=== PATIENT | male | born 1940 | race Caucasian/White ===

== ENCOUNTER 2018-06-22 01:43 | Emergency (ER) | payer MEDICARE, OTHER ==
[~2018-06-22] VITALS: Ht 167.6 cm; Wt 83.9 kg
--- OUTSIDE RECORDS SUMMARY | 2018-06-22 01:47 | XMS REPORT | Continuity of Care Document ---
Author Author [facility] [place] [place] Organization 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 [place] [place] Aug 21, 2014 Allergies, Adverse Reactions, Alerts Type Substance Reaction Status Drug allergy PENICILLIN Active Problems Problem Effective Dates Problem Status BRONCHITIS, ALLERGIC July 16, 2013 Active NEOPLASM, MALIGNANT, RECTUM July 07, 2014 Active COLON POLYPS July 08, 2014 Active RECTAL POLYPS Aug 24, 2014 Active Procedures Date Description Comments July 16, 2013 smoking status never smoker July 07, 2014 smoking status Never smoker Aug 21, 2014 smoking status Never smoker Medications Medication Instructions Start Date Status AMLODIPINE BESYLATE 5 MG TABS 1 by mouth daily July 16, 2013 Active ZITHROMAX TAB 250MG 2 tablets today, then 1 tablet daily X 4 days July 16, 2013 Inactive BROMFED DM 30-2-10 MG/5ML SYRP Take 2 teaspoon 4 times a day for coughing. July 16, 2013 Inactive ASPIRIN LOW DOSE 81 MG TABS July 07, 2014 Active Vital Signs Date Description Test Result July 16, 2013 weight E&M - 3141-9 WEIGHT 179 lb July 16, 2013 height E&M - 8302-2 HEIGHT 67 in July 16, 2013 temperature E&M TEMPERATURE 96.4 deg f July 16, 2013 pulse rate E&M - 8867-4 PULSE RATE 65 /min July 16, 2013 blood pressure, systolic - 8480-6 BP SYSTOLIC 139 mm Hg July 16, 2013 blood pressure, diastolic - 8462-4 BP DIASTOLIC 66 mm Hg July 07, 2014 height E&M - 8302-2 HEIGHT 67 in July 07, 2014 weight E&M - 3141-9 WEIGHT 186 lb July 07, 2014 temperature E&M TEMPERATURE 98.7 deg f July 07, 2014 pulse rate E&M - 8867-4 PULSE RATE 61 /min July 07, 2014 blood pressure, systolic - 8480-6 BP SYSTOLIC 147 mm Hg July 07, 2014 blood pressure, diastolic - 8462-4 BP DIASTOLIC 73 mm Hg Aug 21, 2014 height E&M - 8302-2 HEIGHT 67 in Aug 21, 2014 weight E&M - 3141-9 WEIGHT 184 lb Aug 21, 2014 temperature E&M TEMPERATURE 97.7 deg f Aug 21, 2014 pulse rate E&M - 8867-4 PULSE RATE 68 /min Aug 21, 2014 blood pressure, systolic - 8480-6 BP SYSTOLIC 142 mm Hg Aug 21, 2014 blood pressure, diastolic - 8462-4 BP DIASTOLIC 70 mm Hg
--- OUTSIDE RECORDS SUMMARY | 2018-06-22 01:47 | XMS REPORT | Continuity of Care Document ---
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 Name Role Phone MD Pretty, Alphonso MAGUIRE Unavailable Insurance Providers Payer name Policy type / Coverage type Policy ID Covered libertarian ID Policy [employer] [employer] - OPEN ACCESS PLUS (POS) Encounters Encounter Performer Location Date Office Visit Alphonso Olsen MD [facility] Colorectal Surgery July 07, 2014 Allergies, Adverse Reactions, Alerts Type Substance Reaction Status Drug allergy PENICILLIN Active Problems Problem Effective Dates Problem Status BRONCHITIS, ALLERGIC July 16, 2013 Active NEOPLASM, MALIGNANT, RECTUM July 07, 2014 Active COLON POLYPS July 08, 2014 Active Procedures Date Description Comments July 16, 2013 smoking status never smoker July 07, 2014 smoking status Never smoker Medications Medication [...]
--- OUTSIDE RECORDS SUMMARY | 2018-06-22 01:47 | XMS REPORT | Continuity of Care Document ---
Author Author [facility] Address Unknown Phone Unavailable Problems Problem Status Onset Date Classification Date Reported Comments Source RECTAL POLYPS Active 08/24/2014 Condition 08/21/2014 [facility] COLON POLYPS Active 07/08/2014 Condition 08/21/2014 Medical Group NEOPLASM, MALIGNANT, RECTUM Active 07/07/2014 Condition 08/21/2014 Medical Group BRONCHITIS, ALLERGIC Active 07/16/2013 Condition 08/21/2014 [facility] Group Medications Medication Details Route Status Patient Instructions Ordering Provider Order Date Source ASPIRIN LOW DOSE 81 MG TABS Active 07/07/2014 [facility] AMLODIPINE BESYLATE 5 MG TABS 1 by mouth daily Active 07/16/2013 [facility] ZITHROMAX TAB 250MG 2 tablets today, then 1 tablet daily X 4 days No Longer Active 07/16/2013 Medical Group BROMFED DM 30-2-10 MG/5ML SYRP Take 2 teaspoon 4 times a day for coughing. No Longer Active 07/16/2013 [facility] AMLODIPINE BESYLATE 5 MG TABS 1 by mouth daily Active 07/16/2013 [facility] Allergies, Adverse Reactions, Alerts Substance Category Reaction Severity Reaction type Status Date Reported Comments Source PENICILLIN Drug allergy PENICILLIN 07/07/2014 [facility] Immunizations Immunization Date Given Site Status Last Updated Comments Source Results Order Name Results Value Reference Range Date Interpretation Comments Source Vital Signs Vital Sign Value Date Comments Source Height 67 08/21/2014 [facility] Weight 184 08/21/2014 [facility] Temperature Oral (F) 97.7 F 08/21/2014 [facility] Heart Rate 68 08/21/2014 [facility] Systolic (mm Hg) 142 08/21/2014 [facility] Diastolic (mm Hg) 70 08/21/2014 [facility] Height 67 07/07/2014 [facility] Weight 186 07/07/2014 [facility] Temperature Oral (F) 98.7 F 07/07/2014 [facility] Heart Rate 61 07/07/2014 [facility] Systolic (mm Hg) 147 07/07/2014 [facility] Diastolic (mm Hg) 73 07/07/2014 [facility] Weight 179 07/16/2013 [facility] Height 67 07/16/2013 [facility] Temperature Oral (F) 96.4 F 07/16/2013 Medical [facility] Heart Rate 65 07/16/2013 [facility] Systolic (mm Hg) 139 07/16/2013 [facility] Diastolic (mm Hg) 66 07/16/2013 [facility] Encounters Location Location Details Encounter Type Encounter Number Reason For Visit Attending Provider ADM Date DC Date Status Source [facility] Office Visit [id number] Alphonso Olsen MD 07/07/2014 07/07/2014 [facility] Surgery [place] Office Visit [id number] Alphonso Olsen MD 08/21/2014 08/21/2014 [facility] Procedures Procedure Code Date Perfomer Comments Source
--- OUTSIDE RECORDS SUMMARY | 2018-06-22 01:47 | XMS REPORT | Clinical Summary ---
Author Author [facility] [employer] [facility] Address Unknown Phone Unavailable Care Team Providers [facility] Appraiser Name Role Phone Henry Salcedo DO PCP Allergies Comments Active Allergy Reactions Severity Noted Date Hydralazine Other (See 05/30/2018 Comments) Penicillins Rash Low 07/25/2017 Medications End Date Status Medication Sig Dispensed Refills Start Date Active aspirin (ECOTRIN) 81 MG Take 81 mg by 0 enteric coated tablet mouth daily. Active tamsulosin (FLOMAX) 0.4 Take 0.4 mg 0 mg capsule by mouth daily. 07/02/2018 Active losartan (COZAAR) 100 MG Take 1 tablet 30 tablet 0 tablet (100 mg 9 total) by mouth daily for 30 days. 05/23/2018 Discontinued amLODIPine (NORVASC) 10 Take 10 mg by 0 mg tablet mouth daily. 06/01/2018 Discontinued losartan (COZAAR) 25 MG Take 25 mg by 0 tablet mouth daily. 07/31/2017 Discontinued clindamycin (CLEOCIN) 150 Take 2 56 capsule 0 MG capsule capsules (300 8 mg total) by mouth every 6 (six) hours for 7 days. 07/31/2017 Discontinued acetaminophen-codeine Take 1 tablet 15 tablet 0 (TYLENOL WITH CODEINE #3) by mouth 8 300-30 mg per tablet every 6 (six) hours as needed for moderate pain for up to 3 days. 06/01/2018 Discontinued NON FORMULARY 0 08/30/2017 tamsulosin (FLOMAX) 0.4 Take 1 30 capsule 0 mg capsule,extended capsule (0.4 8 release 24hr mg total) by mouth daily for 30 days. 08/03/2017 acetaminophen-codeine Take 1 tablet 15 tablet 0 (TYLENOL WITH CODEINE #3) by mouth 8 300-30 mg per tablet every 6 (six) hours as needed for moderate pain for up to 3 days. 08/30/2017 fluticasone (FLONASE) 50 2 sprays (100 15.8 mL 0 mcg/actuation nasal spray mcg total) by 8 Each Nare route daily for 30 days. 08/07/2017 clindamycin (CLEOCIN) 150 Take 2 56 capsule 0 MG capsule capsules (300 8 mg total) by mouth every 6 (six) hours for 7 days. 06/01/2018 Discontinued furosemide (LASIX) 20 mg Take 20 mg by 0 tablet mouth daily. 06/11/2018 bacitracin ointment tube Apply 0 topically 2 9 (two) times a day for 10 days. 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 Encounters Care Team Description Date Type Specialty Indira Peters RN 06/01/2018 Patient Quality Outreach Mansi White MD Arriaga, Michael, MD Gadiraju, Sahitya, Hyponatremia (Primary Dx); Weakness; Near syncope; Secondary hypertension 05/28/2018 Hospital Cardiology - Encounter 06/01/2018 Chester Avila MD Essential hypertension (Primary Dx); Hyponatremia 05/23/2018 Emergency Emergency Medicine - 05/24/2018 Chon Graff Jr., MD Opioid abuse, in remission (HCC) (Primary Dx); Anemia, unspecified type; Other fatigue; Biallelic mutation of HBD gene; 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 Lab Lab Chon Graff Jr., MD Ankle arthritis 02/11/2018 Hospital Radiology Encounter Chon Graff Jr., MD Idiopathic gout, unspecified chronicity, unspecified site (Primary Dx) 02/11/2018 Lab Lab Chon Graff Jr., MD Ankle arthritis (Primary Dx) 02/11/2018 Transcribe Access Orders Chon Graff Jr., MD Obstructive sleep apnea (adult) (pediatric) (Primary Dx); Essential hypertension, malignant; Iron deficiency anemia, unspecified iron deficiency anemia type; Anemia, unspecified type 12/17/2017 Lab Lab Chon Graff Jr., MD Blood loss anemia (Primary Dx) 09/03/2017 Lab Lab Chon Graff Jr., MD Blood loss anemia (Primary Dx) 09/03/2017 Lab Lab Chon Graff Jr., MD Chronic obstructive bronchitis; Dyspnea, unspecified type; No energy; 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 08/16/2017 Hospital Procedural Cardiology Encounter Chon Graff Jr., MD Canceled (Medical Reasons) 07/27/2017 Hospital Procedural Cardiology Encounter Madyson Sanchez MD 07/26/2017 Anesthesia Orthopedic Surgery Event Isaiah Martinez MD INCISION AND DRAINAGE, ABSCESS, COMPLEX OR MULTIPLE 07/26/2017 Surgery Orthopedic Surgery Kirill Brewer MD 07/26/2017 Documentation Otolaryngology Ashley Cuba MD Satish, Shiva, MD Joglekar, Swati, MD Cherian, Cecil, MD Bashir's angina (Primary Dx); Leukocytosis, unspecified type; Anemia, unspecified type; Hyponatremia; Bashir's angina; Chronic hypertension; Dental caries 07/25/2017 [facility] General Internal Medicine - Encounter 07/31/2017 Chester Avila MD Sialadenitis (Primary Dx) 07/25/2017 Emergency Emergency Medicine 07/25/2017 Emergency Emergency Medicine Chon Graff Jr., MD Chronic obstructive bronchitis (Primary Dx); Dyspnea, unspecified type; No energy; 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 Last Filed Vital Signs Time Taken Vital Sign Reading 06/01/2018 11:22 AM CDT Blood Pressure 165/63 06/01/2018 11:22 AM CDT Pulse 61 06/01/2018 11:22 AM CDT Temperature 36.1 C (97 F) 06/01/2018 11:22 AM CDT Respiratory Rate 18 06/01/2018 11:22 AM CDT Oxygen Saturation 96% - Inhaled Oxygen - Concentration 06/01/2018 5:00 AM CDT Weight 86.1 kg (189 lb 12.8 oz) 05/29/2018 5:00 AM CDT Height 162.6 cm (5' 4") 06/01/2018 5:00 AM CDT Body Mass Index 32.58 Plan of Treatment Health Maintenance Due Date Last Done Comments SHINGLES VACCINES (#1) 09/01/1989 65+ PNEUMOCOCCAL VACCINE 09/01/2004 (1 of 2 - PCV13) PNEUMOCOCCAL 09/01/2004 POLYSACCHARIDE VACCINE AGE 65 AND OVER INFLUENZA VACCINE 09/26/2018 Procedures Comments Procedure Name Priority Date/Time Associated Diagnosis ESTIMATED GFR Routine 06/01/2018 4:00 AM CDT PHOSPHORUS LEVEL Routine 06/01/2018 4:00 AM CDT MAGNESIUM LEVEL Routine 06/01/2018 4:00 AM CDT BASIC METABOLIC PANEL Routine 06/01/2018 4:00 AM CDT ESTIMATED GFR Routine 05/31/2018 5:46 AM CDT PHOSPHORUS LEVEL Routine 05/31/2018 5:46 AM CDT MAGNESIUM LEVEL Routine 05/31/2018 5:46 AM CDT BASIC METABOLIC PANEL Routine 05/31/2018 5:46 AM CDT SODIUM LEVEL Routine 05/30/2018 6:02 PM CDT ESTIMATED GFR Routine 05/30/2018 5:38 AM CDT PHOSPHORUS LEVEL Routine 05/30/2018 5:38 AM CDT MAGNESIUM LEVEL Routine 05/30/2018 5:38 AM CDT BASIC METABOLIC PANEL Routine 05/30/2018 5:38 AM CDT SODIUM LEVEL, URINE, Routine 05/29/2018 RANDOM 11:13 PM CDT OSMOLALITY, URINE Routine 05/29/2018 11:13 PM CDT OSMOLALITY, SERUM Routine 05/29/2018 7:20 PM CDT ESTIMATED GFR STAT 05/29/2018 6:09 PM CDT BASIC METABOLIC PANEL STAT 05/29/2018 6:09 PM CDT US DUPLEX VENOUS LOWER Routine 05/29/2018 EXTREMITY BILATERAL 12:05 PM CDT ECHOCARDIOGRAM 2D Routine 05/29/2018 COMPLETE W MMODE SPECTRAL 11:25 AM CDT COLOR DOPPLER (92410) ESTIMATED GFR Routine 05/29/2018 3:48 AM CDT B NATRIURETIC PEPTIDE Routine 05/29/2018 3:48 AM CDT COMPREHENSIVE METABOLIC Routine 05/29/2018 PANEL 3:48 AM CDT HC COMPLETE BLD COUNT Routine 05/29/2018 W/AUTO DIFF 3:48 AM CDT OSMOLALITY, URINE Routine 05/29/2018 1:52 AM CDT CREATININE LEVEL, URINE, Routine 05/29/2018 RANDOM 1:52 AM CDT CHLORIDE LEVEL, URINE, Routine 05/29/2018 RANDOM 1:52 AM CDT SODIUM LEVEL, URINE, Routine 05/29/2018 RANDOM 1:52 AM CDT URINALYSIS SCREEN AND Routine 05/29/2018 MICROSCOPY, WITH REFLEX 1:52 AM CDT TO CULTURE URINE CULTURE Routine 05/29/2018 1:52 AM CDT XR CHEST 1 VW PORTABLE STAT 05/28/2018 9:08 PM CDT ECG 12-LEAD STAT 05/28/2018 9:05 PM CDT ESTIMATED GFR STAT 05/28/2018 9:01 PM CDT B NATRIURETIC PEPTIDE STAT 05/28/2018 9:01 PM CDT TROPONIN STAT 05/28/2018 9:01 PM CDT COMPREHENSIVE METABOLIC STAT 05/28/2018 PANEL 9:01 PM CDT PARTIAL THROMBOPLASTIN STAT 05/28/2018 TIME (PTT) 9:01 PM CDT PROTHROMBIN TIME WITH INR STAT 05/28/2018 9:01 PM CDT HC COMPLETE BLD COUNT STAT 05/28/2018 W/AUTO DIFF 9:01 PM CDT ESTIMATED GFR STAT 05/24/2018 12:41 AM CDT B NATRIURETIC PEP, I-STAT STAT 05/24/2018 12:41 AM CDT TROPONIN, I-STAT STAT 05/24/2018 12:41 AM CDT CREATINE KINASE, TOTAL STAT 05/24/2018 (CPK) 12:41 AM CDT COMPREHENSIVE METABOLIC STAT 05/24/2018 PANEL 12:41 AM CDT URINALYSIS STAT 05/24/2018 12:41 AM CDT HC COMPLETE BLD COUNT STAT 05/24/2018 W/AUTO DIFF 12:41 AM CDT XR CHEST 2 VW STAT 05/24/2018 12:32 AM CDT ESTIMATED GFR Routine 04/30/2018 4:25 PM TELEPHONE REPAIRER FERRITIN LEVEL Routine 04/30/2018 Opioid abuse, in 4:25 PM TELEPHONE REPAIRER remission (HCC) Anemia, unspecified type Other fatigue 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 COMPLETE BLD COUNT Routine 04/30/2018 Opioid abuse, in W/AUTO DIFF 4:25 PM TELEPHONE REPAIRER remission (HCC) Anemia, unspecified type Other fatigue 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 TOTAL IRON BINDING Routine 04/30/2018 Opioid abuse, in CAPACITY 4:25 PM TELEPHONE REPAIRER remission (HCC) Anemia, unspecified type Other fatigue 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 THYROID STIMULATING Routine 04/30/2018 Opioid abuse, in HORMONE 4:25 PM TELEPHONE REPAIRER remission (HCC) Anemia, unspecified type Other fatigue 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 T4, FREE Routine 04/30/2018 Opioid abuse, in 4:25 PM TELEPHONE REPAIRER remission (HCC) Anemia, unspecified type Other fatigue 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 BASIC METABOLIC PANEL Routine 04/30/2018 Opioid abuse, in 4:25 PM TELEPHONE REPAIRER remission (HCC) Anemia, unspecified type Other fatigue 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 XR ANKLE 3+ VW LEFT Routine 02/11/2018 Ankle arthritis 5:22 PM TELEPHONE REPAIRER URIC ACID LEVEL Routine 02/11/2018 Idiopathic gout, 3:59 PM TELEPHONE REPAIRER unspecified chronicity, unspecified site ESTIMATED GFR Routine 12/17/2017 4:20 PM CDT VITAMIN D 25 HYDROXY Routine 12/17/2017 Obstructive sleep apnea LEVEL 4:20 PM CDT (adult) (pediatric) Essential hypertension, malignant Iron deficiency anemia, unspecified iron deficiency anemia type Anemia, unspecified type FERRITIN LEVEL Routine 12/17/2017 Obstructive sleep apnea 4:20 PM CDT (adult) (pediatric) Essential hypertension, malignant Iron deficiency anemia, unspecified iron deficiency anemia type Anemia, unspecified type HC COMPLETE BLD COUNT Routine 12/17/2017 Obstructive sleep apnea W/AUTO DIFF 4:20 PM CDT (adult) (pediatric) Essential hypertension, malignant Iron deficiency anemia, unspecified iron deficiency anemia type Anemia, unspecified type BASIC METABOLIC PANEL Routine 12/17/2017 Obstructive sleep apnea 4:20 PM CDT (adult) (pediatric) Essential hypertension, malignant Iron deficiency anemia, unspecified iron deficiency anemia type Anemia, unspecified type OCCULT BLOOD, STOOL Routine 09/03/2017 Blood loss anemia 4:11 PM CDT IMMUNOGLOBULIN M Routine 09/03/2017 Blood loss anemia 3:20 PM CDT IMMUNOGLOBULIN G Routine 09/03/2017 Blood loss anemia 3:20 PM CDT IMMUNOGLOBULIN E Routine 09/03/2017 Blood loss anemia 3:20 PM CDT IMMUNOGLOBULIN A Routine 09/03/2017 Blood loss anemia 3:20 PM CDT SERUM ELECTROPHORESIS Routine 09/03/2017 Blood loss anemia 3:20 PM CDT FOLATE LEVEL Routine 09/03/2017 Blood loss anemia 3:20 PM CDT VITAMIN B12 LEVEL Routine 09/03/2017 Blood loss anemia 3:20 PM CDT RETICULOCYTE COUNT Routine 09/03/2017 Blood loss anemia 3:20 PM CDT HC COMPLETE BLD COUNT Routine 09/03/2017 Blood loss anemia W/AUTO DIFF 3:20 PM CDT NM MYOCARDIAL PERFUSION Routine 08/16/2017 Chronic obstructive STRESS REST 1 DAY 11:33 AM CDT bronchitis Dyspnea, unspecified type No energy 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 CV STRESS TEST NUCLEAR Routine 08/16/2017 Chronic obstructive CARDIO 11:33 AM CDT bronchitis Dyspnea, unspecified type No energy 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 POC GLUCOSE Routine 07/30/2017 8:24 PM CDT POC GLUCOSE Routine 07/30/2017 5:14 PM CDT POC GLUCOSE Routine 07/30/2017 12:00 PM CDT POC GLUCOSE Routine 07/30/2017 7:34 AM CDT PHOSPHORUS LEVEL Routine 07/30/2017 4:52 AM CDT MAGNESIUM LEVEL Routine 07/30/2017 4:52 AM CDT POC GLUCOSE Routine 07/29/2017 9:10 PM CDT POC GLUCOSE Routine 07/29/2017 5:12 PM CDT POC GLUCOSE Routine 07/29/2017 12:19 PM CDT VANCOMYCIN LEVEL, TROUGH Timed 07/29/2017 11:40 AM CDT POC GLUCOSE Routine 07/29/2017 7:33 AM CDT ZZESTIMATED GFR Routine 07/29/2017 7:09 AM CDT PHOSPHORUS LEVEL Routine 07/29/2017 7:09 AM CDT MAGNESIUM LEVEL Routine 07/29/2017 7:09 AM CDT BASIC METABOLIC PANEL Routine 07/29/2017 7:09 AM CDT CBC WITH PLATELET AND Routine 07/29/2017 DIFFERENTIAL 7:09 AM CDT POC GLUCOSE Routine 07/29/2017 12:15 AM CDT POC GLUCOSE Routine 07/28/2017 5:02 PM CDT POC GLUCOSE Routine 07/28/2017 12:55 PM CDT ZZESTIMATED GFR Routine 07/28/2017 2:43 AM CDT PHOSPHORUS LEVEL Routine 07/28/2017 2:43 AM CDT MAGNESIUM LEVEL Routine 07/28/2017 2:43 AM CDT BASIC METABOLIC PANEL Routine 07/28/2017 2:43 AM CDT HC COMPLETE BLD COUNT Routine 07/28/2017 W/AUTO DIFF 2:40 AM CDT POC GLUCOSE Routine 07/27/2017 8:42 PM CDT POC GLUCOSE Routine 07/27/2017 4:28 PM CDT POC GLUCOSE Routine 07/27/2017 11:26 AM CDT POC GLUCOSE Routine 07/27/2017 7:43 AM CDT XR CHEST 1 VW PORTABLE Routine 07/27/2017 7:32 AM CDT POC GLUCOSE Routine 07/27/2017 4:41 AM CDT ZZESTIMATED GFR Routine 07/27/2017 4:30 AM CDT BASIC METABOLIC PANEL Routine 07/27/2017 4:30 AM CDT HC COMPLETE BLD COUNT Routine 07/27/2017 W/AUTO DIFF 4:30 AM CDT POC GLUCOSE Routine 07/27/2017 1:23 AM CDT POC GLUCOSE Routine 07/26/2017 8:28 PM CDT POC GLUCOSE Routine 07/26/2017 4:57 PM CDT POC GLUCOSE Routine 07/26/2017 2:52 PM CDT AFB STAIN Timed 07/26/2017 11:42 AM CDT AFB CULTURE Timed 07/26/2017 11:42 AM CDT GRAM STAIN Timed 07/26/2017 11:42 AM CDT FUNGUS SMEAR Timed 07/26/2017 11:42 AM CDT AEROBIC CULTURE Timed 07/26/2017 Bashir's angina 11:42 AM CDT FUNGUS CULTURE Timed 07/26/2017 Bashir's angina 11:42 AM CDT ANAEROBIC CULTURE Timed 07/26/2017 Bashir's angina 11:42 AM CDT WI AN ELECTIVE Routine 07/26/2017 ENDOTRACHEAL AIRWAY 11:29 AM CDT Procedure Note - Austin Zhao, LEANDRO - 07/26/2017 11:29 AM CDT Airway Date/Time: 07/26/2017 11:17 AM Performed by: AUSTIN ZHAO Authorized by: MADYSON SANCHEZ Location: OR Urgency: Elective Difficult airway: airway swelling, large neck circumfere nce. Preoxygena asaf with 100% O2: Yes C-spine Precaution s Maintained Throughout : Yes Mask Ventilatio n: Easy mask (with OPA) Final Airway Type: Endotrache al airway Final Endotrache al Airway: JOAO tube (ORAL JOAO) Cuffed: Yes Technique Used: Video laryngosco py Devices/Me thods Used in Placement: Intubatin g stylet Insertion Site: Oral Cuff at minimum occlusion pressure: Yes Measured from: Lips (at curve of ORAL JOAO) Placement Verified by: CO2 detection, direct visualizat ion and equal breath sounds Laryngosco pic view: Grade I - full view of glottis Rapid Sequence Induction (RSI): No Modified RSI: Yes Number of Attempts at Approach: 1 Eyes taped closed at LOC and prior to airway manipulati on. Easy mask ventilatio n with OPA - confirmed ability to ventilate. Atraumatic intubation att x 1 by UNDERGROUND DISTRIBUTION ENGINEER with Glidescope #4 blade without complicati ons. Cuff to seal. +EtCO2, +BBS. Dentition unchanged. No complicati ons. Fiberoptic also in room in case of emergencie s, ORAL JOAO 7.0 placed; other sizes available; glyco given in MICU in preparatio n Eyes lubed and tegaderms covering bilateral eyes EXTRACTION, TOOTH 07/26/2017 Bashir's angina 11:00 AM CDT INCISION AND DRAINAGE, 07/26/2017 Bashir's angina ABSCESS, COMPLEX OR 11:00 AM CDT MULTIPLE US DUPLEX VENOUS LOWER Routine 07/26/2017 EXTREMITY BILATERAL 10:00 AM CDT POC GLUCOSE Routine 07/26/2017 8:08 AM CDT URINALYSIS SCREEN AND Routine 07/26/2017 MICROSCOPY, WITH REFLEX 6:30 AM CDT TO CULTURE ECG 12-LEAD STAT 07/26/2017 6:15 AM CDT ZZESTIMATED GFR Routine 07/26/2017 5:00 AM CDT B NATRIURETIC PEPTIDE Routine 07/26/2017 5:00 AM CDT TROPONIN Routine 07/26/2017 5:00 AM CDT PROTHROMBIN TIME WITH INR Routine 07/26/2017 5:00 AM CDT PHOSPHORUS LEVEL Routine 07/26/2017 5:00 AM CDT PARTIAL THROMBOPLASTIN Routine 07/26/2017 TIME (PTT) 5:00 AM CDT LACTIC ACID LEVEL Routine 07/26/2017 5:00 AM CDT IONIZED CALCIUM Routine 07/26/2017 5:00 AM CDT COMPREHENSIVE METABOLIC Routine 07/26/2017 PANEL 5:00 AM CDT HC COMPLETE BLD COUNT Routine 07/26/2017 W/AUTO DIFF 5:00 AM CDT RESPIRATORY PATHOGEN Routine 07/26/2017 PANEL 4:50 AM CDT VENOUS BLOOD GAS Routine 07/26/2017 4:40 AM CDT URINE CULTURE Routine 07/26/2017 4:30 AM CDT POC GLUCOSE Routine 07/26/2017 3:43 AM CDT LACTIC ACID LEVEL Routine 07/26/2017 3:12 AM CDT ZZESTIMATED GFR Routine 07/26/2017 3:12 AM CDT BASIC METABOLIC PANEL Routine 07/26/2017 3:12 AM CDT URINALYSIS SCREEN AND STAT 07/26/2017 MICROSCOPY, WITH REFLEX 3:00 AM CDT TO CULTURE GRAM STAIN STAT 07/26/2017 2:55 AM CDT URINE CULTURE STAT 07/26/2017 2:[address] SOFT TISSUE NECK W STAT 07/26/2017 CONTRAST 12:10 AM CDT XR CHEST 1 VW PORTABLE STAT 07/25/2017 10:40 PM CDT ECG ED PRELIMINARY Routine 07/25/2017 INTERPRETATION 9:30 PM CDT BLOOD CULTURE, AEROBIC & Routine 07/25/2017 ANAEROBIC 8:05 PM CDT LACTIC ACID LEVEL, SEPSIS STAT 07/25/2017 - NOW AND REPEAT 2X EVERY 7:55 PM CDT 3 HOURS ZZESTIMATED GFR STAT 07/25/2017 7:55 PM CDT B NATRIURETIC PEPTIDE STAT 07/25/2017 7:55 PM CDT TROPONIN STAT 07/25/2017 7:55 PM CDT COMPREHENSIVE METABOLIC STAT 07/25/2017 PANEL 7:55 PM CDT HC COMPLETE BLD COUNT STAT 07/25/2017 W/AUTO DIFF 7:55 PM CDT BLOOD CULTURE, AEROBIC & Routine 07/25/2017 ANAEROBIC 7:55 PM CDT ECG 12-LEAD STAT 07/25/2017 7:[address] SOFT TISSUE NECK W STAT 07/25/2017 CONTRAST 2:52 AM CDT ZZESTIMATED GFR STAT 07/25/2017 1:52 AM CDT COMPREHENSIVE METABOLIC STAT 07/25/2017 PANEL 1:52 AM CDT HC COMPLETE BLD COUNT STAT 07/25/2017 W/AUTO DIFF 1:52 AM CDT after 06/21/2017 Results * Estimated GFR (06/01/2018 4:00 AM CDT) Only the most recent of 9 results within the time period is included. Estimated GFR 58 (A) mL/min/1.73 m2 [facility] Comment: HOSPITAL CatergoryUnitsInt rpretation G1 >=90 Normal or high G2 60-89Mildly decreased [id number] Mildly to moderately decreased [id number] Moderately to severely decreased G4 15-29Severely decreased G5 <15Kidney failure The eGFR was calculated using the Chronic Kidney Disease Epidemiology Collaboration (CKD-EPI) equation. Interpretation is based on recommendations of the National Kidney Foundation-Kidney Disease Outcomes Quality Initiative (NKF-KDOQI) published in 2014. Specimen Plasma specimen Performing Organization Address [facility] Phone Number [facility] [place] [address] PATHOLOGY AND [facility] [address] * Phosphorus level (06/01/2018 4:00 AM CDT) Only the most recent of 7 results within the time period is included. Phosphorus 3.3 2.4 - 4.5 mg/dL [facility] Specimen Plasma specimen Performing Organization Address [facility] Phone Number [facility] [place] [address] PATHOLOGY AND [facility] [address] * Magnesium level (06/01/2018 4:00 AM CDT) Only the most recent of 6 results within the time period is included. Magnesium 2.1 1.6 - 2.4 mg/dL [facility] Specimen Plasma specimen Performing Organization Address [facility] Phone Number [facility] [place] [address] PATHOLOGY AND [facility] [address] * Basic metabolic panel (06/01/2018 4:00 AM CDT) Only the most recent of 10 results within the time period is included. Sodium 127 (L) 135 - 148 mEq/L [facility] Potassium 4.9 3.5 - 5.0 mEq/L [facility] Chloride 93 (L) 98 - 112 mEq/L [facility] CO2 23 (L) 24 - 31 mEq/L [facility] Anion gap 11@ANIO 7 - 15 mEq/L [facility] BUN 13 8 - 23 mg/dL [facility] Creatinine 1.19 0.70 - 1.20 mg/dL [facility] Glucose 88 65 - 99 mg/dL [facility] Calcium 9.1 8.8 - 10.2 mg/dL [facility] Specimen Plasma specimen Performing Organization Address [facility] Phone Number [facility] [place] [address] PATHOLOGY AND [facility] [address] * Sodium level (05/30/2018 6:02 PM CDT) Sodium 124 (L) 135 - 148 mEq/L [facility] Specimen Plasma specimen Performing Organization Address [place] Phone Number [facility] [place] [address] PATHOLOGY AND [facility] [address] * Sodium level, urine, random (05/29/2018 11:13 PM CDT) Only the most recent of 2 results within the time period is included. Sodium, urine, random 38 mEq/L [facility] Specimen Urine Performing Organization Address [facility] Phone Number [facility] [place] [address] PATHOLOGY AND [facility] [address] * Osmolality, urine (05/29/2018 11:13 PM CDT) Only the most recent of 2 results within the time period is included. Osmolality, urine 229 50 - 1,400 mOsm/kg [facility] Specimen Urine Performing Organization Address [facility] Phone Number [facility] [place] [address] PATHOLOGY AND [facility] [address] * Osmolality, serum (05/29/2018 7:20 PM CDT) Osmolality 254 (L)Comment: Results double 275 - 295 mOsm/kg [facility] Specimen Blood Performing Organization Address City/State/Zipcode Phone Number [facility] DEPARTMENT OF [address] [place] [address] PATHOLOGY AND [facility] [address] [place] [address] HOSPITAL * Us duplex venous lower extremity (05/29/2018 12:05 PM CDT) Only the most recent of 2 results within the time period is included. Narrative Performed At [facility] Lower Extremity Venous Report [id number] [facility], [facility] [address], [place] [address] Pat.Name:SUYAPA MONCADA Sanford.ID:[id number] .Date: 05/29/2018Refer.MD:ELLEN PÉREZ DO Exam Time: 11:28:00 AM Study Type:LE Venous Height:64inWeight:189lb BSA: 1.91 m2 DOBAge:1940,77Y Sex: MALESonogrphr: Dee Dee Peters RVT Pat. Stat.:Inpatient Room:[facility] TapeVol: LN, CPT - 4: 82382 Echo Event ID:[id number] Order ID:[id number] Reason for Study:Leg swelling and pain. History ofHTN, descending AAA s/p stent,BPH. Procedures:Colorflow, Grayscale/2D, Pulsed wave Doppler Race:C SUMMARY: DUPLEX SCAN OBSERVATIONS Deep VeinsSuperficial Veins RightLeft RightLeft GSV (prox) NormalNormal CFV Normal Normal (above knee) Femoral Normal Normal GSV (dist) Normal Normal Profunda Normal Normal (below knee) Popliteal Normal Normal PT (prox) Normal NormalSSV Normal Normal PT (dist) Normal Normal Peroneal Normal Normal RIGHT: There is normal compressibility with no evidence of echogenic material noted within the lumen of the visualized veins. Colorflow and Doppler signals are normal. LEFT: There is normal compressibility with no evidence of echogenic material noted within the lumen of the visualized veins. Colorflow and Doppler signals are normal. PRELIMINARY FINDINGS 1. No evidence of deep veins thrombosis in the lower extremity, bilaterally. PHYSICIAN INTERPRETATION Venous examination of the both lower extremities demonstrated no evidence of venous thrombosis in the visualized veins.Normal compressibility and augmentation of all veins visualized. Signed 05/29/2018 02:15 PM Bull Rajan MD, RPVI Procedure Note Interface, Radiology Results In - 05/29/2018 2:15 PM CDT [facility] Lower Extremity Venous Report [id number] [place] [address] Pat.Name: SUYAPA MONCADA Pat.ID: [id number] .Date: 05/29/2018 Refer.MD: ELLEN PÉREZ DO Exam Time: 11:28:00 AM Study Type:LE Venous Height: 64in Weight: 189lb BSA: 1.91 m2 Age: 7 1940,77Y Sex: MALE Sonogrphr: Dee Dee Peters RVT Pat. Stat.:Inpatient Room: [address] Vol: LN, CPT - 4: 94943 Echo Event ID:[id number] Order ID: [id number] Reason for Study:Leg swelling and pain. History of HTN, descending AAA s/p stent, BPH. Procedures:Colorflow, Grayscale/2D, Pulsed wave Doppler Race: C SUMMARY: DUPLEX SCAN OBSERVATIONS Deep Veins Superficial Veins Right Left Right Left GSV (prox) Normal Normal CFV Normal Normal (above knee) Femoral Normal Normal GSV (dist) Normal Normal Profunda Normal Normal (below knee) Popliteal Normal Normal PT (prox) Normal Normal SSV Normal Normal PT (dist) Normal Normal Peroneal Normal Normal RIGHT: There is normal compressibility with no evidence of echogenic material noted within the lumen of the visualized veins. Colorflow and Doppler signals are normal. LEFT: There is normal compressibility with no evidence of echogenic material noted within the lumen of the visualized veins. Colorflow and Doppler signals are normal. PRELIMINARY FINDINGS 1. No evidence of deep veins thrombosis in the lower extremity, bilaterally. PHYSICIAN INTERPRETATION Venous examination of the both lower extremities demonstrated no evidence of venous thrombosis in the visualized veins. Normal compressibility and augmentation of all veins visualized. Signed 05/29/2018 02:15 PM Bull Rajan MD, RPVI Performing Organization Address City/State/Zipcode Phone Number [facility] [address] [place] [address] * Echocardiogram complete w contrast and 3D if needed (05/29/2018 11:25 AM CDT) Narrative Performed At [facility] Echocardiography Report [address] [place] [address] Pat.Name:SUYAPA MONCADA.ID:[id number] .Date: 05/29/2018Refer.MD:ELLEN PÉREZ DO Exam Time: 10:45:00 AM Study Type:Routine Echo Height:66inWeight:189lb BSA: 1.95 m2 DOBAge:1940,77Y Sex: MALEBP:162/62 HR:67 bpmSonogrphr: EVANGELIST Bynum Pat. Stat.:Inpatient Room:A7 Study Status:Final Echo Event ID:[id number] Order ID:[id number] Reason for Study:SOB, abn CXR, heart failure suspected Procedures:2D Echo, Colorflow Doppler, Intravenous Definity Contrast Race:C SUMMARY: LV EF is normal. Estimated EF is 60-64%. Mild to moderate aortic regurgitation. LV filling pressure is elevated. Estimated PA systolic pressure is 28 mmHg, assuming a mean RAP of 5 mmHg. FINDINGS: LV: LV size is normal. LV EF is normal. Overall wall motion is normal.Estimated EF is 60-64%. RV: RV size is normal. RV systolic function is normal. LA: LA volume is mildly enlarged. RA: RA volume is mildly enlarged. AO: Aortic root diameter is normal. ISAAC: No pericardial effusion. AV: Aortic valve not well seen. Focal calcification of AV leaflets.Mild to moderate aortic regurgitation. MV: No structural MV abnormalities noted. PV: No structural PV abnormalities noted. Mild pulmonic regurgitation. TV: No structural TV abnormalities noted. Mild tricuspid regurgitation Vuong: LV relaxation is impaired. LV filling pressure is elevated. Other:Estimated PA systolic pressure is 28 mmHg, assuming a mean RAPof 5 mmHg. MEASUREMENTS: 2D Parasternal Long Seltzer LVIDd5.6 cmIndex2.9 cm/m Ao An2.4 cm LVIDs4.4 cmAo Rtd 3.3 cm Index1.7 cm/m LV%fs 21.4 % LV Fwqz847.6 g(122-174) IVSd 0.8 cmLVM Index 98.3 g/m2 LVPWd1 cmRWT0.4 LA Ds3.1 cmLVOT 2 cm LA Sng Plane LA Area 21.5 cm2(8.8-23.4) LA Vol65.5 ml Index33.6 ml/m LA LngAx 5.8 cm RA Sng Plane RA Area 23.2 cm2(8.3-19.5) RA Vol73.2 ml Index37.6 ml/m RA LngAx 5.6 cm DOPPLER LVOT Stroke Vol LVOT 2.4 cmLVOT CO6.1 l/min LVOT TVI22 cmLVOT CI3.1 l/m/m2 LVOT Tm304 uxzfGG89 bpm LVOT SV 99.3 ml Signed 05/29/2018 03:14 PM Kourtney Willingham MD Procedure Note Interface, Radiology Results In - 05/29/2018 3:25 PM CDT Echocardiography Report [address] [place] [id number] Pat.Name: SUYAPA MONCADA Pat.ID: [id number] St.Date: 05/29/2018 Refer.MD: ELLEN PÉREZ DO Exam Time: 10:45:00 AM Study Type:Routine Echo Height: 66in Weight: 189lb BSA: 1.95 m2 Age: 7 1940,77Y Sex: MALE BP: 162/62 HR: 67 bpm Sonogrphr: EVANGELIST Bynum Pat. Stat.:Inpatient Room: A744 Study Status:Final Echo Event ID:[id number] Order ID: [id number] Reason for Study:SOB, abn CXR, heart failure suspected Procedures:2D Echo, Colorflow Doppler, Intravenous Definity Contrast Race: C SUMMARY: LV EF is normal. Estimated EF is 60-64%. Mild to moderate aortic regurgitation. LV filling pressure is elevated. Estimated PA systolic pressure is 28 mmHg, assuming a mean RAP of 5 mmHg. FINDINGS: LV: LV size is normal. LV EF is normal. Overall wall motion is normal. Estimated EF is 60-64%. RV: RV size is normal. RV systolic function is normal. LA: LA volume is mildly enlarged. RA: RA volume is mildly enlarged. AO: Aortic root diameter is normal. ISAAC: No pericardial effusion. AV: Aortic valve not well seen. Focal calcification of AV leaflets. Mild to moderate aortic regurgitation. MV: No structural MV abnormalities noted. PV: No structural PV abnormalities noted. Mild pulmonic regurgitation. TV: No structural TV abnormalities noted. Mild tricuspid regurgitation Vuong: LV relaxation is impaired. LV filling pressure is elevated. Other: Estimated PA systolic pressure is 28 mmHg, assuming a mean RAP of 5 mmHg. MEASUREMENTS: 2D Parasternal Long Seltzer LVIDd 5.6 cm Index 2.9 cm/m Ao An 2.4 cm LVIDs 4.4 cm Ao Rtd 3.3 cm Index 1.7 cm/m LV%fs 21.4 % LV Mass 191.6 g (122-174) IVSd 0.8 cm LVM Index 98.3 g/m2 LVPWd 1 cm RWT 0.4 LA Ds 3.1 cm LVOT 2 cm LA Sng Plane LA Area 21.5 cm2 (8.8-23.4) LA Vol 65.5 ml Index 33.6 ml/m LA LngAx 5.8 cm RA Sng Plane RA Area 23.2 cm2 (8.3-19.5) RA Vol 73.2 ml Index 37.6 ml/m RA LngAx 5.6 cm DOPPLER LVOT Stroke Vol LVOT 2.4 cm LVOT CO 6.1 l/min LVOT TVI 22 cm LVOT CI 3.1 l/m/m2 LVOT Tm 304 msec HR 61 bpm LVOT SV 99.3 ml Signed 05/29/2018 03:14 PM Kourtney Willingham MD Performing Organization Address City/State/Zipcode Phone Number [facility] [address] [place] [address] * CBC with platelet and differential (05/29/2018 3:48 AM CDT) Only the most recent of 12 results within the time period is included. WBC 5.02 4.50 - 11.00 k/uL [facility] RBC 3.60 (L) 4.40 - 6.00 m/uL [facility] HGB 11.1 (L) 14.0 - 18.0 g/dL [facility] HCT 31.8 (L) 41.0 - 51.0 % [facility] MCV 88.3 82.0 - 100.0 fL [facility] MCH 30.8 27.0 - 34.0 pg [facility] MCHC 34.9 31.0 - 37.0 g/dL [facility] RDW - SD 39.6 37.0 - 55.0 fL [facility] MPV 9.9 8.8 - 13.2 fL [facility] Platelet count 194 150 - 400 k/uL [facility] Nucleated RBC 0.00 /100 WBC [facility] Neutrophils 52.8 39.0 - 69.0 % [facility] Lymphocytes 26.5 25.0 - 45.0 % [facility] Monocytes 16.3 (H) 0.0 - 10.0 % [facility] Eosinophils 3.2 0.0 - 5.0 % [facility] Basophils 1.0 0.0 - 1.0 % [facility] Immature granulocytes 0.2Comment: "Immature 0.0 - 1.0 % [facility] granulocytes" (promyelocytes, HOSPITAL myelocytes, metamyelocytes) Specimen Blood Performing Organization Address City/Va Hospital/Zipcode Phone Number [facility] [place] [address] PATHOLOGY AND GENOMIC MEDICINE [address] * B natriuretic peptide (05/29/2018 3:48 AM CDT) Only the most recent of 4 results within the time period is included. BNP 303 (H) 0 - 100 pg/mL [facility] Specimen Blood Narrative Performed At NA results called to and read back by SAÚL FOSTER/Rodri [facility] DEPARTMENT OF AT05/29/201804:47 [place] PATHOLOGY AND GENOMIC MEDICINE Performing Organization Address City/Va Hospital/Zipcode Phone Number [facility] DEPARTMENT OF [address] [place] [address] PATHOLOGY AND GENOMIC MEDICINE [address] * Comprehensive metabolic panel (05/29/2018 3:48 AM CDT) Only the most recent of 6 results within the time period is included. Sodium 120 (LL) 135 - 148 mEq/L [facility] Potassium 4.7 3.5 - 5.0 mEq/L [facility] Chloride 85 (L) 98 - 112 mEq/L [facility] CO2 23 (L) 24 - 31 mEq/L [facility] Anion gap 12@ANIO 7 - 15 mEq/L [facility] BUN 11 8 - 23 mg/dL [facility] Creatinine 0.99 0.70 - 1.20 mg/dL [facility] Glucose 129 (H) 65 - 99 mg/dL [facility] Calcium 8.7 (L) 8.8 - 10.2 mg/dL [facility] Protein 6.2 (L) 6.3 - 8.3 g/dL [facility] Comment: HOSPITAL [place] 4.6-7.0 g/dL 1 week 4.4-7.6 g/dL 7 months-1year 5.1-7.3 g/dL 1-2 years5.6-7 .5 g/dL >3 years6.0-8 .0 g/dL 18-150 6.3-8.3 g/dL Albumin 3.1 (L) 3.5 - 5.0 g/dL [facility] A/G ratio 1.0 0.7 - 3.8 [facility] Alkaline phosphatase 76 40 - 129 U/L [facility] AST 43 10 - 50 U/L [facility] ALT 23 5 - 50 U/L [facility] Total bilirubin 0.4 0.0 - 1.2 mg/dL [facility] Specimen Plasma specimen Performing Organization Address City/State/Zipcode Phone Number [facility] DEPARTMENT OF [address] [place] [address] PATHOLOGY AND GENOMIC MEDICINE [address] * Urinalysis screen and microscopy, with reflex to culture (05/29/2018 1:52 AM CDT) Only the most recent of 3 results within the time period is included. Specimen site Clean catch [facility] Color, UA Straw [facility] Appearance, UA Clear [facility] Specific gravity, UA 1.006 1.001 - 1.035 [facility] pH, UA 7.0 5.0 - 8.5 [facility] Protein, UA Negative Negative [facility] Glucose, UA Negative Negative [facility] Ketones, UA Trace (A) Negative [facility] Bilirubin, UA Negative Negative [facility] Blood, UA Negative Negative [facility] Nitrite, UA Negative Negative [facility] Urobilinogen, UA <2.0 <2.0 [facility] Leukocyte esterase, UA Negative Negative [facility] WBC, UA <1 0 - 1 /HPF [facility] RBC, UA 1 0 - 5 /HPF [facility] Bacteria, UA None seen None seen [facility] Yeast, UA None seen [facility] Yeast with pseudohyphae, None seen [facility] Specimen Urine Performing Organization Address City/[facility] Phone Number [facility] [place] [address] PATHOLOGY AND GENOMIC MEDICINE [address] * Creatinine level, urine, random (05/29/2018 1:52 AM CDT) Creatinine, urine, random 28 mg/dL [facility] Specimen Urine Performing Organization Address [facility] Phone Number [facility] [place] [address] PATHOLOGY AND GENOMIC MEDICINE [address] * Chloride level, urine, random (05/29/2018 1:52 AM CDT) Chloride, urine, random 52 mEq/L [facility] Specimen Urine Performing Organization Address City/[facility] Hospital/[facility] Phone Number [facility] [place] [address] PATHOLOGY AND [facility] MEDICINE [address] * Urine culture (05/29/2018 1:52 AM CDT) Only the most recent of 3 results within the time period is included. Urine culture SEE COMMENTComment: [facility] Bacteriuria screen negative. HOSPITAL Performing Organization Address City/[facility] Phone Number [facility] [place] [address] PATHOLOGY AND GENOMIC MEDICINE [address] * XR Chest 1 Vw Portable (05/28/2018 9:08 PM CDT) Only the most recent of 3 results within the time period is included. Narrative Performed At EXAMINATION:XR CHEST 1 VW PORTABLE [facility] CLINICAL HISTORY:htn TECHNIQUE:XR CHEST 1 VW PORTABLE COMPARISON:Chest radiograph dated 05/23/2018 FINDINGS: Lines/tubes:None. Heart and mediastinum:There is mild enlargement of the cardiac silhouette.There is atherosclerotic calcification and mild ectasia of the thoracic aorta. Lungs:There is minimal atelectasis/scarring at the lung bases.There is no focal consolidation. There is no evidence of pulmonary edema. Pleura:There is no pleural effusion. There is no pneumothorax. Bones and Soft Tissues:Unremarkable. IMPRESSION: No acute cardiopulmonary abnormality. [facility]-[id number] Procedure Note Hm Interface, Radiology Results Incoming - 05/28/2018 9:17 PM CDT EXAMINATION: XR CHEST 1 VW PORTABLE CLINICAL HISTORY: htn TECHNIQUE: XR CHEST 1 VW PORTABLE COMPARISON: Chest radiograph dated 05/23/2018 FINDINGS: Lines/tubes: None. Heart and mediastinum: There is mild enlargement of the cardiac silhouette. There is atherosclerotic calcification and mild ectasia of the thoracic aorta. Lungs: There is minimal atelectasis/scarring at the lung bases. There is no focal consolidation. There is no evidence of pulmonary edema. Pleura: There is no pleural effusion. There is no pneumothorax. Bones and Soft Tissues: Unremarkable. IMPRESSION: No acute cardiopulmonary abnormality. [facility]-[id number] Performing Organization Address City/[facility] Hospital/[facility] Phone Number [facility] [address] [place] [address] * ECG 12 lead (05/28/2018 9:05 PM CDT) Only the most recent of 3 results within the time period is included. 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 Troponin <0.30 0.00 - 0.30 ng/mL [facility] Comment: HOSPITAL 0.30 - 1.49 ng/mlMay indicate increased risk of acute coronary syndrome. >=1.5 ng/ml Consistent with acute myocardial infarction. The diagnostic value of a single normal or non-diagnostic result is questionable.Serial samples at 2-6 hour intervals are required to rule out acute myocardial injury. Specimen Plasma specimen Performing Organization Address [facility] Phone Number [facility] DEPARTMENT OF [address] [place] [address] PATHOLOGY AND [facility] [address] * Partial thromboplastin time, activated (05/28/2018 9:01 PM CDT) Only the most recent of 2 results within the time period is included. PTT 30.4 23.0 - 36.0 sec [facility] Comment: HOSPITAL PTT therapeutic range for unfractionated heparin is 61.0-112.0 seconds which corresponds to Anti-Xa 0.3-0.7 U/ml. Specimen Blood Performing Organization Address [facility] Phone Number [facility] DEPARTMENT OF [address] [place] [address] PATHOLOGY AND GENOMIC MEDICINE [address] * Prothrombin time with INR (05/28/2018 9:01 PM CDT) Only the most recent of 2 results within the time period is included. Prothrombin time 12.4 11.5 - 14.5 sec [facility] INR 1.[address] [facility] Comment: HOSPITAL The International Normalized Ratio (INR) is a therapeutic monitoring tool for patients who are stable on oral anticoagulant therapy. An INR of 2.0-3.0 is suggested for deep vein thrombosis/pulmonary embolism. Specimen Blood Performing Organization Address [facility] Hospital/Zipcode Phone Number [facility] DEPARTMENT OF [address] [place] [address] PATHOLOGY AND GENOMIC MEDICINE [address] * Urinalysis (05/24/2018 12:41 AM CDT) Glucose, UA Negative Negative [facility] Bilirubin, UA Negative Negative [facility] Ketones, UA Negative Negative [facility] Specific gravity, UA 1.010 1.001 - 1.035 [facility] Blood, UA Negative Negative [facility] pH, UA 7.0 5.0 - 8.5 [facility] Protein, UA Negative Negative [facility] Urobilinogen, UA <2.0 <2.0 [facility] Nitrite, UA Negative Negative [facility] Leukocyte esterase, UA Negative Negative [facility] Color, UA Yellow [facility] Appearance, UA Clear [facility] Specimen Urine Performing Organization Address City/[facility] Hospital/[facility]ode Phone [place] [address] PATHOLOGY AND GENOMIC MEDICINE[address] * Troponin, I-Stat (05/24/2018 12:41 AM CDT) Troponin, I-Stat 0.00 0.00 - 0.08 ng/mL [facility] Comment: [facility] 0.09 - 1.49 [facility] ng/mlMay indicate increased risk of acute coronary syndrome. >=1.5 ng/ml Consistent with acute myocardial infarction. The diagnostic value of a single normal or non-diagnostic result is questionable.Serial samples at 2-6 hour intervals are required to rule out acute myocardial injury. Specimen Plasma specimen Performing Organization Address City/[facility] Hospital/[facility] [place] [address] PATHOLOGY AND GENOMIC MEDICINE, [address] * B natriuretic pep, I-Stat (05/24/2018 12:41 AM CDT) BNP, I-Stat 178 (H) 0 - 100 pg/mL [facility] Specimen Blood Performing Organization Address City/State/Zipcode Phone Number [facility] OF [address] [place] [address] PATHOLOGY AND GENOMIC MEDICINE, [id number] [place] [address] * Creatine kinase, total (CPK) (05/24/2018 12:41 AM CDT) Creatine kinase 339 39 - 380 U/L [facility] Specimen Plasma specimen Performing Organization Address City/[facility] Phone Number DEPARTMENT OF [address] [place] [phone] PATHOLOGY AND GENOMIC MEDICINE[id number] [place] [address] * XR Chest 2 Vw (05/24/2018 12:32 AM CDT) Narrative Performed At EXAMINATION: [facility] 2 [facility] CLINICAL H[facility]: htn COMPARISON:07/27/2017 chest x-ray. IMPRESSION: The lungs are clear. No pleural effusion or pneumothorax. The cardiomediastinal silhouette is normal. No acute osseous abnormalities. [facility]-[id number] Procedure Note Interface, Radiology Results Incoming - 05/24/2018 12:41 AM CDT EXAMINATION: XR CHEST 2 VW CLINICAL HISTORY: htn COMPARISON: 07/27/2017 chest x-ray. IMPRESSION: The lungs are clear. No pleural effusion or pneumothorax. The cardiomediastinal silhouette is normal. No acute osseous abnormalities. [facility]-[id number] Performing Organization Address [facility] Phone Number [facility] [address] [place] [address] * Total iron binding capacity (04/30/2018 4:25 PM TELEPHONE REPAIRER) Iron level 45 (L) 59 - 158 ug/dL [facility] Iron binding capacity 247 200 - 400 ug/dL [facility] % Saturation 18.2 (L) 20.0 - 40.0 % [facility] Specimen Plasma specimen Performing Organization Address City/Va Hospital/Zipcode Phone Number [facility] DEPARTMENT OF [address] [place] [address] PATHOLOGY AND GENOMIC MEDICINE [address] * Thyroid stimulating hormone (04/30/2018 4:25 PM TELEPHONE REPAIRER) TSH 2.54 0.27 - 4.20 uIU/mL [facility] Specimen Plasma specimen Performing Organization Address City/[facility] Phone Number [facility] [place] [address] PATHOLOGY AND GENOMIC MEDICINE [address] * T4, free (04/30/2018 4:25 PM TELEPHONE REPAIRER) T4, free 1.1 0.9 - 1.7 ng/dL [facility] Specimen Plasma specimen Performing Organization Address City/[facility] Phone Number [facility] [place] [address] PATHOLOGY AND GENOMIC MEDICINE [address] * Ferritin level (04/30/2018 4:25 PM TELEPHONE REPAIRER) Only the most recent of 2 results within the time period is included. 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 IMPRESSION: 3 views of the left ankle. No acute fracture or dislocation. There is joint space narrowing with some subcortical cystic changes from either degenerative disease, neuropathy, or inflammatory arthropathy. The inferior calcaneal spur is present. There is some soft tissue swelling along the lateral malleolus. [id number] Procedure Note Hm Interface, Radiology Results Incoming - 02/11/2018 5:39 PM TELEPHONE REPAIRER EXAMINATION: XR ANKLE 3 VW LEFT CLINICAL HISTORY: M19.079 Primary osteoarthritis unspecified ankle and foot, M19.079 COMPARISON: None. IMPRESSION: 3 views of the left ankle. No acute fracture or dislocation. There is joint space narrowing with some subcortical cystic changes from either degenerative disease, neuropathy, or inflammatory arthropathy. The inferior calcaneal spur is present. There is some soft tissue swelling along the lateral malleolus. [id number] Performing Organization Address [facility]/Zipcode Phone Number [address] [address] * Uric acid level (02/11/2018 3:59 PM TELEPHONE REPAIRER) Uric acid 6.3 3.4 - 7.0 mg/dL [facility] Specimen Plasma specimen Performing Organization Address [facility] Phone Number [address] [address] PATHOLOGY AND GENOMIC MEDICINE [address] * Vitamin D 25 hydroxy level (12/17/2017 4:20 PM CDT) Vitamin D, 25-hydroxy 67.0 30.0 - 150.0 ng/mL [facility] DEPARTMENT OF Comment: PATHOLOGY AND This assay reports the sum of [employer] MEDICINE 25-hydroxy vitamin D3 and 25-hydroxy vitamin D2. Reference range: 0-17 years: Deficiency: less than 20ng/mL Optimum level: greater than or equal to 20 ng/mL. 18 years and older: Deficiency: less than 20ng/mL Insufficiency: 20-29 ng/mL Optimum Level: 30-80 ng/mL The assay reportable range is 3.4155.9 ng/mL. Levels higher than 150 ng/mL may be associated with toxicity. If toxicity is clinically suspected and the reported result is >155.9 ng/mL,contact lab for alternative methods to obtain a definitivelevel. If separate quantitation of 25-hydroxy vitamin D3 and 25-hydroxy vitamin D2 is needed, please contact lab for alternative methods. Specimen Blood Performing Organization Address [facility] Phone Number [facility] [address] PATHOLOGY AND GENOMIC MEDICINE * Occult blood, stool (09/03/2017 4:11 PM CDT) Occult blood, stool Negative for occult blood. [facility] DEPARTMENT OF Comment: PATHOLOGY AND Specimen Information GENOMIC MEDICINE Specimen Source: Stool Specimen Site: Nonpreserved Specimen Stool - Nonpreserved Performing Organization Address [facility]/Zipcode Phone Number [facility] [address] PATHOLOGY AND GENOMIC MEDICINE * Reticulocyte count (09/03/2017 3:20 PM CDT) Retic %, auto 1.1 0.5 - 2.1 % [facility] DEPARTMENT OF PATHOLOGY AND GENOMIC MEDICINE Retic absolute, auto 0.0454 0.0220 - 0.1260 m/uL [facility] DEPARTMENT OF PATHOLOGY AND GENOMIC MEDICINE Specimen Blood Performing Organization Address [facility] [place] [address] PATHOLOGY AND GENOMIC MEDICINE * Serum electrophoresis (09/03/2017 3:20 PM CDT) Protein 6.7 6.3 - 8.3 g/dL [facility] DEPARTMENT OF Comment: PATHOLOGY AND GENOMIC MEDICINE 4.6-7.0 g/dL 1 week 4.4-7.6 g/dL 7 months-1year 5.1-7.3 g/dL 1-2 years5.6-7 .5 g/dL >3 years6.0-8 .0 g/dL 18-150 6.3-8.3 g/dL SPE albumin 4.35 4.00 - 5.30 g/dL [facility] DEPARTMENT OF PATHOLOGY AND GENOMIC MEDICINE SPE alpha 1 0.17 0.10 - 0.25 g/dL [facility] DEPARTMENT OF PATHOLOGY AND GENOMIC MEDICINE SPE alpha 2 0.77 0.58 - 0.84 g/dL [facility] DEPARTMENT OF PATHOLOGY AND GENOMIC MEDICINE SPE beta 0.80 0.50 - 1.10 g/dL [facility] DEPARTMENT OF PATHOLOGY AND GENOMIC MEDICINE SPE gamma 0.61 0.60 - 1.30 g/dL [facility] DEPARTMENT OF PATHOLOGY AND GENOMIC MEDICINE SPE extended See CommentComment: A normal [facility] DEPARTMENT OF interpretation serum protein study. PATHOLOGY AND GENOMIC MEDICINE SPE interpretation See CommentComment: [place] [facility] DEPARTMENT OF Juan, PhD; Marga Bello, PhD; Vicki DE AND MD Issac GENOMIC MEDICINE Specimen Serum Performing Organization Address [facility] [place] [address] PATHOLOGY AND GENOMIC MEDICINE * Immunoglobulin E (09/03/2017 3:20 PM CDT) IgE 31.9 0.0 - 100.0 IU/mL [facility] DEPARTMENT OF PATHOLOGY AND GENOMIC MEDICINE Specimen Plasma specimen Performing Organization Address City/[facility]/[place] [address] PATHOLOGY AND GENOMIC MEDICINE * Immunoglobulin A (09/03/2017 3:20 PM CDT) IgA 297 70 - 400 mg/dL [facility] DEPARTMENT OF PATHOLOGY AND GENOMIC MEDICINE Specimen Plasma specimen Performing Organization Address [facility] [place] [address] PATHOLOGY AND GENOMIC MEDICINE * Immunoglobulin M (09/03/2017 3:20 PM CDT) IgM 44 33 - 255 mg/dL [facility] DEPARTMENT OF PATHOLOGY AND GENOMIC MEDICINE Specimen Plasma specimen Performing Organization Address [facility] Phone Number [facility] [address] PATHOLOGY AND GENOMIC MEDICINE * Immunoglobulin G (09/03/2017 3:20 PM CDT) IgG 846 700 - 1,600 mg/dL [facility] DEPARTMENT OF PATHOLOGY AND GENOMIC MEDICINE Specimen Plasma specimen Performing Organization Address [facility] [address] PATHOLOGY AND GENOMIC MEDICINE * Folate level (09/03/2017 3:20 PM CDT) Folate >20.0 4.8 - 24.2 ng/mL [facility] DEPARTMENT OF PATHOLOGY AND GENOMIC MEDICINE Specimen Serum Performing Organization Address [facility] [place] [address] PATHOLOGY AND GENOMIC MEDICINE * Vitamin B12 level (09/03/2017 3:20 PM CDT) Vitamin B12 500 211 - 946 pg/mL [facility] DEPARTMENT OF Comment: PATHOLOGY AND Significant overlap exists GENOMIC MEDICINE between normal and deficiency states. However, most patients with deficiencies will have Serum B12 <200 pg/mL. Specimen Serum Performing Organization Address [facility] [place] [address] PATHOLOGY AND GENOMIC MEDICINE * Cv exercise treadmill stress (no imaging) (08/16/2017 11:33 AM CDT) Resting HR 56 [facility] MUSE Resting BP 151 [facility] MUSE Peak MET Achieved 1.0 [facility] MUSE Protocol Name REGLUZ MARINAO [facility] MUSE Time in Exercise Phase 00:01:00 [facility] MUSE Max Systolic BP 151 [facility] MUSE Max Diastolic BP 69 [facility] MUSE Max Heart Rate 74 [facility] MUSE Max Predicted Heart Rate 143 [facility] MUSE Target HR Formula (220 - Age)*100% [facility] MUSE Test Indication EXTREME FATIGUE [facility] MUSE Arrhy During Ex [facility] MUSE ECG Interp Before EX [facility] MUSE ECG Interp During Ex [facility] MUSE Ex Summary Comment [facility] MUSE Overall HR Response to [facility] MUSE Exercise Overall BP Response To [facility] MUSE Exercise Reason for Termination [facility] MUSE Stress Test Impression -Waveform interpreted in [facility] MUSE report associated with image study. No interpretation is provided as part of this Stress ECG report.-Electronically Signed By Raimundo RHOADES, Tiffani Cyr ([id number]), graphic editor Leobardo Senior ([id number]) on 08/16/2017 3:09:11 PM Performing Organization Address City/State/Zipcode Phone Number [facility] MUSE [address] [place] [address] * Cv myocardial perfusion (08/16/2017 11:33 AM CDT) Narrative Performed At [facility] Nuclear Cardiology and Cardiac CT [address] [place] [address] Myocardial Perfusion Imaging Report Stress ECG tracings are available in MUSE, EPIC and CV Web All ECG interpretations are included in this report Pat.Name:SUYAPA MONCADA STEWARTat.ID:[id number] .Date: 08/16/2017 Refer.MD:DUTCH GRAFF MD Exam Time: 11:56:00 AM Study Type:Myocardial Perfusion Imaging Height:64inBSA: 1.89 m2 DOBAge:1940,76YSex: MALE BP:151/69HR: 54 bpm Nuclear Tech:Bandar Grady [facility], [facility]/ SRIKANTH QuezadaMT, ARRT(N) Pat. Stat.:Outpatient Nuclear Event ID:[id number] Order ID:[id number] Reason for Study:Shortness of breath History / Clinical:Family history CAD, Hypertension, Obesity, Former smoker Procedures:Single Day Stress / Rest Risk Factors:Hypertension, Obesity, Family history of cardiovascular disease Clinical Symptoms:Regadenoson Physical Exam:S1, S2 Surgery: Outpatient Medications:Amlodipine, Aspirin, Cozaar, Flonase SUMMARY: SCINTIGRAPHIC RESULTS Perfusion Defect Size (% LV) 0 % Total 0 % Ischemia 0 % Scar Left Ventricular Perfusion Results There is normal tracer distribution throughout the myocardium during stress, prone and rest imaging. Gated SPECT Results The post-stress left ventricular ejection fraction is 76 % with normal regional wall motion and left ventricular thickening.Left ventricular end-diastolic volume is 114 ml; end-systolic volume is27 ml. The left ventricle is of normal size at stress.The right ventricle is of normal size with normal wall motion. Conclusion Normal regadenoson Tc-99m tetrofosmin myocardial perfusion study. The left ventricular ejection fraction is normal. Comments Patients with a normal stress myocardial perfusion study have a low (< 1%) annual risk of cardiac or nonfatal myocardial infarction. Study Quality/Artifacts The study quality is fair. The mild reduction in mid and basal inferolateral wall counts during stress is probably due to diaphragmatic and other soft tissue attenuation artifacts rather than coronary artery disease, which improves with prone imaging. Comparison to Previous Study None available. STRESS: Baseline Vital Signs:Intervention: Regadenoson 0.4mg/5ml IV over 10 seconds followed by radiotracer injection and 5ml saline flush ECG: Normal Sinus Rhythm, Right bundle branch block, Left atrial enlargement HR:54 BP:151/69 Stress Test Results: Target HR: 122 Symptoms and Complications: Arrhythmias: None Terminated: As per Regadenoson protocol Symptoms:Shortness of breath Complications: None Conclusions: Normal heart rate response to pharmacological stress, Normal blood pressure response to pharmacological stress Stress ECG Interp: No ischemic ST segment change occurred with stress. Signed 08/16/2017 05:59 PM Jose Rafael Chisholm MD Procedure Note Interface, Radiology Results In - 08/16/2017 5:59 PM CDT Nuclear Cardiology and Cardiac CT [address] [address] Myocardial Perfusion Imaging Report Stress ECG tracings are available in [employer], [employer] and [employer] All ECG interpretations are included in this report Pat.Name: CORAL SUYAPA Braden Pat.ID: [id number] .Date: 08/16/2017 Refer.MD: DUTCH GRAFF MD Exam Time: 11:56:00 AM Study Type:Myocardial Perfusion Imaging Height: 64in BSA: 1.89 m2 Age: 7 1940,76Y Sex: MALE BP: 151/69 HR: 54 bpm Nuclear Tech:Bandar Grady, [facility], ARRT/ Mabel Vásquez [facility], ARRT(N) Pat. Stat.:Outpatient Nuclear Event ID:[id number] Order ID: [id number] Reason for Study:Shortness of breath History / Clinical:Family history CAD, Hypertension, Obesity, Former smoker Procedures:Single Day Stress / Rest Risk Factors:Hypertension, Obesity, Family history of cardiovascular disease Clinical Symptoms:Regadenoson Physical Exam:S1, S2 Surgery: Outpatient Medications:Amlodipine, Aspirin, Cozaar, Flonase SUMMARY: SCINTIGRAPHIC RESULTS Perfusion Defect Size (% LV) 0 % Total 0 % Ischemia 0 % Scar Left Ventricular Perfusion Results There is normal tracer distribution throughout the myocardium during stress, prone and rest imaging. Gated SPECT Results The post-stress left ventricular ejection fraction is 76 % with normal regional wall motion and left ventricular thickening. Left ventricular end-diastolic volume is 114 ml; end-systolic volume is 27 ml. The left ventricle is of normal size at stress. The right ventricle is of normal size with normal wall motion. Conclusion Normal regadenoson Tc-99m tetrofosmin myocardial perfusion study. The left ventricular ejection fraction is normal. Comments Patients with a normal stress myocardial perfusion study have a low (< 1%) annual risk of cardiac or nonfatal myocardial infarction. Study Quality/Artifacts The study quality is fair. The mild reduction in mid and basal inferolateral wall counts during stress is probably due to diaphragmatic and other soft tissue attenuation artifacts rather than coronary artery disease, which improves with prone imaging. Comparison to Previous Study None available. STRESS: Baseline Vital Signs: Intervention: Regadenoson 0.4mg/5ml IV over 10 seconds followed by radiotracer injection and 5ml saline flush ECG: Normal Sinus Rhythm, Right bundle branch block, Left atrial enlargement HR: 54 BP: 151/69 Stress Test Results: Target HR: 122 Symptoms and Complications: Arrhythmias: None Terminated: As per Regadenoson protocol Symptoms: Shortness of breath Complications: None Conclusions: Normal heart rate response to pharmacological stress, Normal blood pressure response to pharmacological stress Stress ECG Interp: No ischemic ST segment change occurred with stress. Signed 08/16/2017 05:59 PM Jose Rafael Chisholm MD Performing Organization Address City/[facility]/Zipcode Phone Number [facility] [address] [place] [address] * POC glucose (07/30/2017 8:24 PM CDT) Only the most recent of 22 results within the time period is included. POC glucose 138 (H) 65 - 99 mg/dL [facility] DEPARTMENT OF Comment: PATHOLOGY AND [facility] Notified RN GENOMIC MEDICINE Meter ID: [id number] Manager Country: [place] Yun Performing Organization Address [facility]/Zipcode Phone Number [address] [address] PATHOLOGY AND GENOMIC MEDICINE * Vancomycin level, trough (07/29/2017 11:40 AM CDT) Vancomycin, trough 11.1 10.0 - 20.0 ug/mL [facility] DEPARTMENT OF Comment: PATHOLOGY AND Therapeutic Ranges: GENOMIC MEDICINE Peak 30.0 - 40.0 ug/mL Itvbee75.0 - 20.0 ug/mL Specimen Serum Performing Organization Address [facility] [place] [address] PATHOLOGY AND GENOMIC MEDICINE * Estimated GFR (07/29/2017 7:09 AM CDT) Only the most recent of 7 results within the time period is included. GFR Non Af Amer 82 mL/min/1.73 m2 [facility] DEPARTMENT OF PATHOLOGY AND GENOMIC MEDICINE GFR Af Amer >90 mL/min/1.73 m2 [facility] DEPARTMENT OF Comment: PATHOLOGY AND Chronic kidney disease: <60 GENOMIC MEDICINE mL/min/1.73m2 Kidney failure: <15 mL/min/1.73m2 The estimated GFR is calculated from the IDAL-traceable Modification of Diet in Renal Disease Equation. The accuracy of the calculation is poor when the creatinine is normal. Calculated values >90 mL/min/1.73m2 are not reported. This equation has not been validated in children (<18 years), women, the elderly (>70 years), or ethnic groups other than Caucasians and Americans. Specimen Plasma specimen Performing Organization Address City/[facility] Phone Number [facility] DEPARTMENT OF [address] [place] [address] PATHOLOGY AND GENOMIC MEDICINE * Fungus smear (07/26/2017 11:42 AM CDT) Fungus smear No fungi observed. [facility] DEPARTMENT OF Comment: PATHOLOGY AND Specimen Information GENOMIC MEDICINE Specimen Source: Abscess Specimen Site: Mandible Submental abscess Specimen Abscess Performing Organization Address [facility] Phone Number [facility] [address] PATHOLOGY AND GENOMIC MEDICINE * AFB culture (07/26/2017 11:42 AM CDT) AFB culture isolate No growth after 6 weeks of [facility] DEPARTMENT OF incubation. PATHOLOGY AND Comment: GENOMIC MEDICINE Specimen Information Specimen Source: Abscess Specimen Site: Mandible Submental abscess Specimen Abscess Performing Organization Address [facility] Phone Number [facility] [address] PATHOLOGY AND GENOMIC MEDICINE * Aerobic culture (07/26/2017 11:42 AM CDT) Aerobic culture isolate Diphtheroids [facility] DEPARTMENT OF Few PATHOLOGY AND (A) GENOMIC MEDICINE Comment: Specimen Information Specimen Source: Abscess Specimen Site: Mandible Submental abscess Aerobic culture isolate Staphylococcus, coagulase [facility] DEPARTMENT OF negative PATHOLOGY AND Few GENOMIC MEDICINE (A) Aerobic culture isolate Alpha Strep, not pneumococcus [facility] DEPARTMENT OF Few PATHOLOGY AND Few GENOMIC MEDICINE (A) Specimen Abscess - Mandible Performing Organization Address [facility] Phone Number [facility] [address] PATHOLOGY AND GENOMIC MEDICINE * Gram stain (07/26/2017 11:42 AM CDT) Only the most recent of 2 results within the time period is included. Gram stain isolate Few WBC's [facility] DEPARTMENT OF No organisms seen PATHOLOGY AND Comment: GENOMIC MEDICINE Specimen Information Specimen Source: Abscess Specimen Site: Mandible Submental abscess Specimen Abscess Performing Organization Address City/[facility] Phone Number [facility] DEPARTMENT OF [address] [place] [address] PATHOLOGY AND GENOMIC MEDICINE * AFB stain (07/26/2017 11:42 AM CDT) AFB stain No acid fast bacilli (AFB) [facility] DEPARTMENT OF seen. PATHOLOGY AND Comment: GENOMIC MEDICINE Specimen Information Specimen Source: Abscess Specimen Site: Mandible Submental abscess Specimen Abscess Performing Organization Address City/[facility] Phone Number [facility] DEPARTMENT OF [address] [place] [address] PATHOLOGY AND GENOMIC MEDICINE * Fungus culture (07/26/2017 11:42 AM CDT) Fungus culture isolate No growth after 4 weeks of [facility] DEPARTMENT OF incubation. PATHOLOGY AND Comment: GENOMIC MEDICINE Specimen Information Specimen Source: Abscess Specimen Site: Mandible Submental abscess Specimen Abscess - Mandible Performing Organization Address [facility] Phone Number [facility] DEPARTMENT OF [address] [place] [address] PATHOLOGY AND GENOMIC MEDICINE * Anaerobic culture (07/26/2017 11:42 AM CDT) Anaerobic culture isolate Prevotella species (A) [facility] DEPARTMENT OF Comment: PATHOLOGY AND Specimen Information GENOMIC MEDICINE Specimen Source: Abscess Specimen Site: Mandible Submental abscess Anaerobic culture isolate Eubacterium brachy (A) [facility] DEPARTMENT OF PATHOLOGY AND GENOMIC MEDICINE Anaerobic culture isolate Atopobium rimae (A) [facility] DEPARTMENT OF PATHOLOGY AND GENOMIC MEDICINE Specimen Abscess - Mandible Performing Organization Address [facility] Phone Number [facility] DEPARTMENT OF [address] [place] [address] PATHOLOGY AND GENOMIC MEDICINE * Lactic acid level (07/26/2017 5:00 AM CDT) Only the most recent of 2 results within the time period is included. Lactic acid 0.8 0.5 - 2.2 mmol/L [facility] DEPARTMENT OF PATHOLOGY AND GENOMIC MEDICINE Specimen Plasma specimen Performing Organization Address City/[facility] Phone [facility] [address] PATHOLOGY AND GENOMIC MEDICINE * Ionized calcium (07/26/2017 5:00 AM CDT) pH 7.53 [facility] DEPARTMENT OF PATHOLOGY AND GENOMIC MEDICINE Ionized calcium 1.03 (L) 1.11 - 1.32 mmol/L [facility] DEPARTMENT OF PATHOLOGY AND GENOMIC MEDICINE Specimen Plasma specimen Performing Organization Address [facility] [place] [address] PATHOLOGY AND GENOMIC MEDICINE * Respiratory pathogen panel (07/26/2017 4:50 AM CDT) Respiratory pathogen Negative for all pathogens [facility] DEPARTMENT OF panel tested: PATHOLOGY AND Negative for Adenovirus [facility] Negative for Coronavirus HKU1 Negative for Coronavirus NL63 Negative for Coronavirus 229E Negative for Coronavirus OC43 Negative for Human Metapneumovirus Negative for Rhinovirus/Enterovirus Negative for Influenza A Negative for Influenza A/H1 Negative for Influenza A/H3 Negative for Influenza A/H1-2009 Negative for Influenza B Negative for Parainfluenza Virus 1 Negative for Parainfluenza Virus 2 Negative for Parainfluenza Virus 3 Negative for Parainfluenza Virus 4 Negative for Respiratory Syncytial Virus Negative for Bordetella pertussis Negative for Chlamydophila pneumoniae Negative for Mycoplasma pneumoniae This real-time PCR assay detects the presence of nucleic acids (RNA or DNA) for the respiratory pathogens listed. A result of "Not-detected" does not exclude the possibility of the presence of one or more pathogens at concentrations less than the detectable limits of the assay. Comment: Specimen Information Specimen Source: Nares Specimen Site: Right Specimen Nares - Right Performing Organization Address [facility] Phone Number [place] [phone] PATHOLOGY AND P2P-Next MEDICINE * Venous blood gas (07/26/2017 4:40 AM CDT) pH, venous 7.36 7.32 - 7.42 [facility] DEPARTMENT OF PATHOLOGY AND GENOMIC MEDICINE pCO2, venous 41 (L) 45 - 51 mmHg [facility] DEPARTMENT OF PATHOLOGY AND GENOMIC MEDICINE pO2, venous 92 (H) 25 - 40 mmHg [facility] DEPARTMENT OF PATHOLOGY AND GENOMIC MEDICINE Base excess, venous -2 -2 - 2 meq/L [facility] DEPARTMENT OF PATHOLOGY AND GENOMIC MEDICINE O2 saturation, venous 98 (H) 40 - 70 % [facility] DEPARTMENT OF PATHOLOGY AND GENOMIC MEDICINE Bicarbonate, venous 22.4 21.0 - 28.0 mmol/L [facility] DEPARTMENT OF PATHOLOGY AND GENOMIC MEDICINE Specimen Blood Performing Organization Address [facility] Phone Number [facility] DEPARTMENT OF [address] [place] [address] PATHOLOGY AND GENOMIC MEDICINE * CT Soft Tissue Neck W Contrast (07/26/2017 12:10 AM CDT) Only the most recent of 2 results within the time period is included. Narrative Performed At EXAMINATION: CT SOFT TISSUE NECK W CONTRAST HM [facility]IANT CLINICAL HISTORY: submental bilateral swelling and pain with dysphonia COMPARISON:Soft tissue neck 07/25/2017 TECHNIQUE: Postcontrast enhanced imaging through the neck was performed from the upper chest through the skull base with coronal and sagittal reconstructed images.CT imaging was performed with iterative reconstruction technique and/or automated exposure control to reduce radiation dose. FINDINGS: Limited evaluation the visualized intracranial contents demonstrates no acute abnormality. Visualized orbits are normal in appearance. Moderate paranasal sinus mucosal thickening of the visualized maxillary sinuses with mild frothy fluid bilaterally. The parotid glands and submandibular glands are normal in appearance. There is abscess centered in the right mylohyoid musculature measuring approximately 1.5 x 1.9 x 2.9 cm cm (AP X transverse X CC) with mild of the right floor the mouth and moderate inflammation of the subcutaneous tissues below the mandible with mild thickening of the platysma, increased. There is mild edema around the right submandibular gland, reactive. No odontogenic etiology of this is identified. There is mild increase parapharyngeal fat space inflammation on the right. Few prominent cervical lymph nodes without adenopathy. No suspicious osseous abnormalities. IMPRESSION: Abscess centered in the right mylohyoid musculature measuring 2.9 cm with increased surrounding inflammation involving the right floor the mouth and submandibular subcutaneous tissues. Mild edema around the right-sided submandibular gland is reactive. No odontogenic etiology is identified. Findings were discussed with and acknowledged by Dr. Cuba at 07/26/2017 12:17 AM who verbalized understanding. [facility]-[id number] Procedure Note Interface, Radiology Results Incoming - 07/26/2017 12:23 AM CDT EXAMINATION: CT SOFT TISSUE NECK W CONTRAST CLINICAL HISTORY: submental bilateral swelling and pain with dysphonia COMPARISON: Soft tissue neck 07/25/2017 TECHNIQUE: Postcontrast enhanced imaging through the neck was performed from the upper chest through the skull base with coronal and sagittal reconstructed images. CT imaging was performed with iterative reconstruction technique and/or automated exposure control to reduce radiation dose. FINDINGS: Limited evaluation the visualized intracranial contents demonstrates no acute abnormality. Visualized orbits are normal in appearance. Moderate paranasal sinus mucosal thickening of the visualized maxillary sinuses with mild frothy fluid bilaterally. The parotid glands and submandibular glands are normal in appearance. There is abscess centered in the right mylohyoid musculature measuring approximately 1.5 x 1.9 x 2.9 cm cm (AP X transverse X CC) with mild of the right floor the mouth and moderate inflammation of the subcutaneous tissues below the mandible with mild thickening of the platysma, increased. There is mild edema around the right submandibular gland, reactive. No odontogenic etiology of this is identified. There is mild increase parapharyngeal fat space inflammation on the right. Few prominent cervical lymph nodes without adenopathy. No suspicious osseous abnormalities. IMPRESSION: Abscess centered in the right mylohyoid musculature measuring 2.9 cm with increased surrounding inflammation involving the right floor the mouth and submandibular subcutaneous tissues. Mild edema around the right-sided submandibular gland is reactive. No odontogenic etiology is identified. Findings were discussed with and acknowledged by Dr. Cuba at 07/26/2017 12:17 AM who verbalized understanding. [facility]-[id number] Performing Organization Address [facility] [place] Phone Number [facility] [address] [place] [address] * ECG ED Preliminary Interpretation - NOT AN ORDER (07/25/2017 9:30 PM CDT) Narrative Performed At Ashley Cuba MD 07/30/2017 11:33 AM ECG ED Preliminary Interpretation - Not an Order Performed by: ASHLEY CUBA Authorized by: ASHLEY CUBA ECG reviewed by ED Physician in the absence of a assistant professor of psychology: yes Interpretation: Interpretation: abnormal Rate: ECG rate:86 ECG rate assessment: normal Rhythm: Rhythm: sinus rhythm QRS: QRS axis:Left QRS intervals:Normal ST segments: ST segments:Normal Comments: LAE * Blood culture, aerobic & anaerobic (07/25/2017 8:05 PM CDT) Only the most recent of 2 results within the time period is included. Blood culture isolate No growth after 5 days of [facility] DEPARTMENT OF incubation. PATHOLOGY AND Comment: GENOMIC MEDICINE Specimen Information Specimen Source: Blood Specimen Site: Antecubital, right Specimen Blood - Antecubital, right Performing Organization Address [facility] Phone Number [facility] DEPARTMENT OF [address] [place] [address] PATHOLOGY AND GENOMIC MEDICINE * Lactic acid level, SEPSIS - Now and repeat 2x every 3 hours (07/25/2017 7:55 PM CDT) Lactic acid 1.7 0.5 - 2.2 mmol/L [facility] DEPARTMENT OF PATHOLOGY AND GENOMIC MEDICINE Specimen Plasma specimen Performing Organization Address [facility] Number [facility] DEPARTMENT OF [address] [place] [id number] PATHOLOGY AND GENOMIC MEDICINE after 06/21/2017 Insurance Payer Benefit Subscriber ID Type Phone Address Plan / Group MEDICARE MEDICARE xxxxxxxxxxx Medicare [place] PART A [place] B AETNA AETNA xxxxxxxxxx HMO HMO,POS,EP O, MC/EC Advance Directives Patient has advance care planning documents on file. For more information, augustina barrios contact: Campbell Mcgee [address] [place] [address]
--- NOTE | 2018-06-22 02:42 | Diagnostic Imaging Report ---
EXAMINATION: Head CT without contrast. HISTORY:Status post fall. COMPARISON:None. TECHNIQUE: Multidetector axial images were obtained from the foramen magnum to the vertex without contrast. The images were reconstructed using brain and bone algorithms. Thin section brain images were reformatted into coronal and sagittal planes. Dose modulation, iterative reconstruction, and/or weight based adjustment of the mA/kV was utilized to reduce the radiation dose to as low as reasonably achievable. Intravenous contrast: None IMAGE QUALITY: Suboptimal evaluation particularly of skull base and posterior fossa structures due to streak artifacts. FINDINGS: Skull/scalp: Mild right frontal scalp soft tissue edema. No soft tissue emphysema or radiopaque foreign body. No acute depressed or displaced calvarial fracture. Parenchyma: Focal hypodensity in right caudate head represents age indeterminate lacunar infarct. Nonspecific bilateral frontoparietal few, scattered hypodensity are likely related to small vessel ischemic changes. No acute hemorrhage, mass or acute major vascular territorial infarct. Arteries: No density suggestive of thrombosis. Atherosclerotic calcification in bilateral carotid siphon and V4 segment of the vertebral arteries. Dural sinuses: No abnormal density suggestive of thrombosis. Ventricles: Moderate compensated dilatation due to volume loss (left more than right lateral ventricular dilatation may represent normal anatomic variant). No acute hydrocephalus. Extra-axial spaces: No abnormal density. Brain volume: Generalized age-related cerebral volume loss. Craniocervical junction: No mass, Chiari malformation, or basilar invagination. Sella: No mass. Paranasal/mastoid sinuses: Imaged portions unremarkable. IMPRESSION: 1. Minimal right frontal scalp soft tissue swelling. No acute fracture. 2. Suboptimal evaluation due to streak artifacts, despite the limitation no gross acute intracranial hemorrhage or major vascular territorial infarct. 3. 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 4. Generalized age-related cerebral volume loss. Signed by: Dr. Florinda Mane M.D. on 06/22/2018 2:39 AM
== END 2018-06-22 03:01 | disposition home or self-care (01) ==
LOC: FSED 01:43
DX: S01.81XA Laceration without foreign body of other part of head, initial encounter (principal); W01.0XXA Fall on same level from slipping, tripping and stumbling without subsequent striking against object, initial encounter; Y92.008 Other place in unspecified non-institutional (private) residence as the place of occurrence of the external cause; I10 Essential (primary) hypertension
CPT/HCPCS: 70450; 99283

== ENCOUNTER 2018-06-23 21:52 | Emergency (ER) | payer OTHER, MEDICARE ==
[~2018-06-23] VITALS: Ht 167.6 cm; Wt 83.9 kg
--- OUTSIDE RECORDS SUMMARY | 2018-06-23 21:55 | XMS REPORT ---
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 Allergies, Adverse Reactions, Alerts This patient has no known allergies or adverse reactions. Medications This patient has no known medications. Results Test Description Test Time Test Comments Text Results Atomic Results Result Comments CT BRAIN WO-HOPD 2018-06-22 02:34:00 [facility] [address] [address] Patient Name: SUYAPA MONCADA MR #: [id number] : 1940 Age/Sex: 77/M Req #: [id number] Adm Physician: Ordered by: DIANNA CUMMINGS MD Report #: [id number] Location: FS Room/Bed: Procedure: [id number] HOPD/CT BRAIN WO-HOPD Exam Date: 06/22/18 Exam Time: 0220 REPORT STATUS: Signed EXAMINATION: Head CT without contrast. HI STORY:Status post fall. COMPARISON:None. TECHNIQUE: Multidetector axial images were obtained from the foramen magnum to the vertex without contrast. The images were reconstructed using brain and bone algorithms. Thin section brain images were reformatted into coronal and sagittal planes. Dose modulation, iterative reconstruction, and/or weight based adjustment of the mA/kV was utilized to reduce the radiation dose to as low as reasonably achievable. Intravenous contrast: None IMAGE QUALITY: Suboptimal evaluation particularly of skull base and posterior fossa structures due to streak artifacts. FINDINGS: Skull/scalp: Mild right frontal scalp soft tissue edema. No soft tissue emphysema or radiopaque foreign body. No acute depressed or displaced calvarial fracture. Parenchyma: Focal hypodensity in right caudate head represents age indeterminate lacunar infarct. Nonspecific bilateral frontoparietal few, scattered hypodensity are likely related to small vessel ischemic changes. No acute hemorrhage, mass or acute major vascular territorial infarct. Arteries: No density suggestive of thrombosis. Atherosclerotic calcification in bilateral carotid siphon and V4 segment of the vertebral arteries. Dural sinuses: No abnormal density suggestive of thrombosis. Ventricles: Moderate compensated dilatation due to volume loss (left more than right lateral ventricular dilatation may represent normal anatomic variant). No acute hydrocephalus. Extra-axial spaces: No abnormal density. Brain volume: Generalized age-related cerebral volume loss. Craniocervical junction: No mass, Chiari malformation, or basilar invagination. Sella: No mass. Paranasal/mastoid sinuses: Imaged portions unremarkable. IMPRESSION: 1. Minimal right frontal scalp soft tissue swelling. No acute fracture. 2. Suboptimal evaluation due to streak artifacts, despite the limitation no gross acute intracranial hemorrhage or major vascular territorial infarct. 3. 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 4. Generalized age-related cerebral volume loss. Signed by: Dr. Florinda Mesa M.D. on 06/22/2018 2:39 AM Dictated By: FLORINDA MESA MD 8 Transcribed By: DAVID on 06/22/18238 COPY TO: DIANNA CUMMINGS MD
--- OUTSIDE RECORDS SUMMARY | 2018-06-23 21:55 | XMS REPORT | Clinical Summary ---
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 07/19/2017 Transcribe Procedural Cardiology Orders after 06/22/2017 Social History Date Tobacco Use Types Packs/Day [...] MMODE SPECTRAL 11:25 AM CDT COLOR DOPPLER ([id number]) ESTIMATED GFR Routine 05/29/2018 3:48 AM CDT [...] CDT ESTIMATED GFR Routine 04/30/2018 4:25 PM INTERPRETER TRANSLATOR FERRITIN LEVEL Routine 04/30/2018 Opioid abuse, in 4:25 PM INTERPRETER TRANSLATOR remission (HCC) Anemia, unspecified type Other fatigue 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 COMPLETE BLD COUNT Routine 04/30/2018 Opioid abuse, in W/AUTO DIFF 4:25 PM INTERPRETER TRANSLATOR remission (HCC) Anemia, unspecified type Other fatigue 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 TOTAL IRON BINDING Routine 04/30/2018 Opioid abuse, in CAPACITY 4:25 PM INTERPRETER TRANSLATOR remission (HCC) Anemia, unspecified type Other fatigue 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 THYROID STIMULATING Routine 04/30/2018 Opioid abuse, in HORMONE 4:25 PM INTERPRETER TRANSLATOR remission (HCC) Anemia, unspecified type Other fatigue 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 T4, FREE Routine 04/30/2018 Opioid abuse, in 4:25 PM INTERPRETER TRANSLATOR remission (HCC) Anemia, unspecified type Other fatigue 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 Atraumatic intubation att x 1 by REGISTER OF DEEDS with Glidescope #4 blade without complicati ons. [...] 07/25/2017 W/AUTO DIFF 1:52 AM CDT after 06/22/2017 Results * Estimated GFR (06/01/2018 4:00 AM CDT) Only the most recent of 9 results within the time period is included. Estimated GFR 58 (A) mL/min/1.73 m2 [facility] Comment: HOSPITAL CatergoryUnitsInt rpretation G1 >=90 Normal or high G2 60-89Mildly decreased [id number] Mildly to moderately decreased E2l90-17 Moderately to severely decreased G4 15-29Severely decreased G5 <15Kidney failure The eGFR was calculated using the Chronic Kidney Disease Epidemiology Collaboration (CKD-EPI) equation. Interpretation is based on recommendations of the National Kidney Foundation-Kidney Disease Outcomes Quality Initiative (NKF-KDOQI) published in 2014. Specimen Plasma specimen Performing Organization Address City/[facility] Phone Number [facility] [place] [address] PATHOLOGY AND [facility] [address] * Phosphorus level (06/01/2018 4:00 AM CDT) Only the most recent of 7 results within the time period is included. Phosphorus 3.3 2.4 - 4.5 mg/dL [facility] Specimen Plasma specimen Performing Organization Address City/[facility] Phone Number [facility] [place] [address] PATHOLOGY AND [facility] [address] * Magnesium level (06/01/2018 4:00 AM CDT) Only the most recent of 6 results within the time period is included. Magnesium 2.1 1.6 - 2.4 mg/dL [facility] Specimen Plasma specimen Performing Organization Address City/[facility] Phone Number [facility] [place] [address] PATHOLOGY AND [facility] [address] * Basic metabolic panel (06/01/2018 4:00 AM CDT) Only the most recent of 10 results within the time period is included. Sodium 127 (L) 135 - 148 mEq/L [facility] Potassium 4.9 3.5 - 5.0 mEq/L [facility] Chloride 93 (L) 98 - 112 mEq/L [facility] CO2 23 (L) 24 - 31 mEq/L [facility] Anion gap 11@ANIO 7 - 15 mEq/L [facility] BUN 13 8 - 23 mg/dL [facility] Creatinine 1.19 0.70 - 1.20 mg/dL [facility] Glucose 88 65 - 99 mg/dL [facility] Calcium 9.1 8.8 - 10.2 mg/dL [facility] Specimen Plasma specimen Performing Organization Address City/[facility] Phone Number [facility] [place] [address] PATHOLOGY AND [facility] [address] * Sodium level (05/30/2018 6:02 PM CDT) Sodium 124 (L) 135 - 148 mEq/L [facility] Specimen Plasma specimen Performing Organization Address City/[facility] Phone Number [facility] [place] [address] PATHOLOGY AND [facility] [address] * Sodium level, urine, random (05/29/2018 11:13 PM CDT) Only the most recent of 2 results within the time period is included. Sodium, urine, random 38 mEq/L [facility] Specimen Urine Performing Organization Address City/[facility] Phone Number [facility] [place] [address] PATHOLOGY AND GENOMIC MEDICINE [address] * Osmolality, urine (05/29/2018 11:13 PM CDT) Only the most recent of 2 results within the time period is included. Osmolality, urine 229 50 - 1,400 mOsm/kg [facility] Specimen Urine Performing Organization Address City/[facility] Phone Number [facility] [place] [address] PATHOLOGY AND GENOMIC MEDICINE [address] * Osmolality, serum (05/29/2018 7:20 PM CDT) Osmolality 254 (L)Comment: Results double 275 - 295 mOsm/kg [facility] checked. HOSPITAL Specimen Blood Performing Organization Address City/State/Zipcode Phone Number [facility] DEPARTMENT OF [address] [place] [address] PATHOLOGY AND GENOMIC MEDICINE [facility] [address] [place] [address] HOSPITAL * Us duplex venous lower extremity (05/29/2018 12:05 PM CDT) Only the most recent of 2 results within the time period is included. Narrative Performed At [facility] Lower Extremity Venous Report [address] [facility], [facility] [address], [place] [address] Pat.Name:SUYAPA MONCADA Sanford.ID:[id number] .Date: 05/29/2018Refer.MD:ELLEN PÉREZ DO Exam Time: 11:28:00 AM Study Type:LE Venous Height:64inWeight:189lb BSA: 1.91 m2 DOBAge:1940,77Y Sex: MALESonogrphr: Dee Dee Peters RVT Pat. Stat.:Inpatient Room:[facility] TapeVol: LN, CPT - 4: 74075 Echo Event ID:[id number] Order ID:[id number] Reason for Study:Leg swelling and pain. History [...] Ultrasound Laboratory Lower Extremity Venous Report [address] [place] [address] Pat.Name: SUYAPA MONCADA Pat.ID: [id number] .Date: 05/29/2018 Refer.MD: ELLEN PÉREZ DO Exam Time: 11:28:00 AM Study Type:LE Venous Height: 64in Weight: 189lb BSA: 1.91 m2 Age: 7 1940,77Y Sex: MALE Sonogrphr: Dee Dee Peters RVT Pat. Stat.:Inpatient Room: [address] Vol: LN, CPT - 4: 42742 Echo Event ID:[id number] Order ID: [id number] Reason for Study:Leg swelling and pain. History [...] RPVI Performing Organization Address City/State/Zipcode Phone Number [facility] [address] [place] [address] * Echocardiogram complete w contrast and 3D if needed (05/29/2018 11:25 AM CDT) Narrative Performed At [facility] Echocardiography Report [address] [place] [address] Pat.Name:SUYAPA MONCADA.ID:[id number] .Date: 05/29/2018Refer.MD:ELLEN PÉREZ DO Exam Time: 10:45:00 AM Study Type:Routine Echo Height:66inWeight:189lb BSA: 1.95 m2 DOBAge:1940,77Y Sex: MALEBP:162/62 HR:67 bpmSonogrphr: EVANGELIST Bynum Pat. Stat.:Inpatient Room:A7 Study Status:Final Echo Event ID:[id number] Order ID:[id number] Reason for Study:SOB, abn CXR, heart failure [...] RAPof 5 mmHg. MEASUREMENTS: 2D Parasternal [place] LVIDd5.6 cmIndex2.9 cm/m Ao An2.4 cm LVIDs4.4 cmAo Rtd 3.3 cm Index1.7 cm/m LV%fs 21.4 % LV Mged003.6 g(122-174) IVSd 0.8 cmLVM Index 98.3 g/m2 LVPWd1 cmRWT0.4 LA Ds3.1 cmLVOT 2 cm LA Sng Plane LA Area 21.5 cm2(8.8-23.4) LA Vol65.5 ml Index33.6 ml/m LA LngAx 5.8 cm RA Sng Plane RA Area 23.2 cm2(8.3-19.5) RA Vol73.2 ml Index37.6 ml/m RA LngAx 5.6 cm DOPPLER LVOT Stroke Vol LVOT 2.4 cmLVOT CO6.1 l/min LVOT TVI22 cmLVOT CI3.1 l/m/m2 LVOT Tm304 hqgaNQ12 bpm LVOT SV 99.3 ml Signed 05/29/2018 03:14 PM Kourtney Willingham MD Procedure Note Interface, Radiology Results In - 05/29/2018 3:25 PM CDT Echocardiography Report [address] [place] [id number] Pat.Name: SUYAPA MONCADA Pat.ID: [id number] St.Date: 05/29/2018 Refer.MD: ELLEN PÉREZ DO Exam Time: 10:45:00 AM Study Type:Routine Echo Height: 66in Weight: 189lb BSA: 1.95 m2 Age: 6 1940,77Y Sex: MALE BP: 162/62 HR: 67 bpm Sonogrphr: EVANGELIST Bynum Pat. Stat.:Inpatient Room: A744 Study Status:Final Echo Event ID:[id number] Order ID: [id number] Reason for Study:SOB, abn CXR, heart failure [...] of 5 mmHg. MEASUREMENTS: 2D Parasternal [place] LVIDd 5.6 cm Index 2.9 cm/m Ao [...] Organization Address City/State/Zipcode Phone Number [facility] [address] [place] [address] * CBC with platelet and differential (05/29/2018 3:48 AM CDT) Only the most recent of 12 results within the time period is included. WBC 5.02 4.50 - 11.00 k/uL [facility] RBC 3.60 (L) 4.40 - 6.00 m/uL [facility] HGB 11.1 (L) 14.0 - 18.0 g/dL [facility] HCT 31.8 (L) 41.0 - 51.0 % [facility] MCV 88.3 82.0 - 100.0 fL [facility] MCH 30.8 27.0 - 34.0 pg [facility] MCHC 34.9 31.0 - 37.0 g/dL [facility] RDW - SD 39.6 37.0 - 55.0 fL [facility] MPV 9.9 8.8 - 13.2 fL [facility] Platelet count 194 150 - 400 k/uL [facility] Nucleated RBC 0.00 /100 WBC [facility] Neutrophils 52.8 39.0 - 69.0 % [facility] Lymphocytes 26.5 25.0 - 45.0 % [facility] Monocytes 16.3 (H) 0.0 - 10.0 % [facility] Eosinophils 3.2 0.0 - 5.0 % [facility] Basophils 1.0 0.0 - 1.0 % [facility] Immature granulocytes 0.2Comment: "Immature 0.0 - 1.0 % [facility] granulocytes" (promyelocytes, HOSPITAL myelocytes, metamyelocytes) Specimen Blood Performing Organization Address City/[facility]/Zipcode Phone Number [facility] [place] [address] PATHOLOGY AND GENOMIC MEDICINE [address] * B natriuretic peptide (05/29/2018 3:48 AM CDT) Only the most recent of 4 results within the time period is included. BNP 303 (H) 0 - 100 pg/mL [facility] Specimen Blood Narrative Performed At NA results called to and read back by SAÚL FOSTER/Rodri [facility] DEPARTMENT OF AT05/29/201804:47 BY HI PATHOLOGY AND GENOMIC MEDICINE Performing Organization Address City/[facility]/Zipcode Phone Number [facility] DEPARTMENT OF [address] [place] [address] PATHOLOGY AND GENOMIC MEDICINE [address] * Comprehensive metabolic panel (05/29/2018 3:48 AM CDT) Only the most recent of 6 results within the time period is included. Sodium 120 (LL) 135 - 148 mEq/L [facility] Potassium 4.7 3.5 - 5.0 mEq/L [facility] Chloride 85 (L) 98 - 112 mEq/L [facility] CO2 23 (L) 24 - 31 mEq/L [facility] Anion gap 12@ANIO 7 - 15 mEq/L [facility] BUN 11 8 - 23 mg/dL [facility] Creatinine 0.99 0.70 - 1.20 mg/dL [facility] Glucose 129 (H) 65 - 99 mg/dL [facility] Calcium 8.7 (L) 8.8 - 10.2 mg/dL [facility] Protein 6.2 (L) 6.3 - 8.3 g/dL [facility] Comment: HOSPITAL [place] 4.6-7.0 g/dL 1 week 4.4-7.6 g/dL 7 months-1year 5.1-7.3 g/dL 1-2 years5.6-7 .5 g/dL >3 years6.0-8 .0 g/dL 18-150 6.3-8.3 g/dL Albumin 3.1 (L) 3.5 - 5.0 g/dL [facility] A/G ratio 1.0 0.7 - 3.8 [facility] Alkaline phosphatase 76 40 - 129 U/L [facility] AST 43 10 - 50 U/L [facility] ALT 23 5 - 50 U/L [facility] Total bilirubin 0.4 0.0 - 1.2 mg/dL [facility] Specimen Plasma specimen Performing Organization Address City/State/Zipcode Phone Number [facility] DEPARTMENT OF [address] [place] [address] PATHOLOGY AND GENOMIC MEDICINE [address] * Urinalysis screen and microscopy, with reflex to culture (05/29/2018 1:52 AM CDT) Only the most recent of 3 results within the time period is included. Specimen site Clean catch [facility] Color, UA Straw [facility] Appearance, UA Clear [facility] Specific gravity, UA 1.006 1.001 - 1.035 [facility] pH, UA 7.0 5.0 - 8.5 [facility] Protein, UA Negative Negative [facility] Glucose, UA Negative Negative [facility] Ketones, UA Trace (A) Negative [facility] Bilirubin, UA Negative Negative [facility] Blood, UA Negative Negative [facility] Nitrite, UA Negative Negative [facility] Urobilinogen, UA <2.0 <2.0 [facility] Leukocyte esterase, UA Negative Negative [facility] WBC, UA <1 0 - 1 /HPF [facility] RBC, UA 1 0 - 5 /HPF [facility] Bacteria, UA None seen None seen [facility] Yeast, UA None seen [facility] Yeast with pseudohyphae, None seen [facility] Specimen Urine Performing Organization Address City/[facility] Phone Number [facility] [place] [address] PATHOLOGY AND GENOMIC MEDICINE [address] * Creatinine level, urine, random (05/29/2018 1:52 AM CDT) Creatinine, urine, random 28 mg/dL [facility] Specimen Urine Performing Organization Address [facility] Phone Number [facility] [place] [address] PATHOLOGY AND GENOMIC MEDICINE [address] * Chloride level, urine, random (05/29/2018 1:52 AM CDT) Chloride, urine, random 52 mEq/L [facility] Specimen Urine Performing Organization Address City/[facility] Phone Number [facility] [place] [address] PATHOLOGY AND [facility] [address] * Urine culture (05/29/2018 1:52 AM CDT) Only the most recent of 3 results within the time period is included. Urine culture SEE COMMENTComment: [facility] Bacteriuria screen negative. HOSPITAL Performing Organization Address City/[facility] Phone Number [facility] [place] [address] PATHOLOGY AND GENOMIC MEDICINE [address] * XR Chest 1 Vw Portable [...] Soft Tissues:Unremarkable. IMPRESSION: No acute cardiopulmonary abnormality. [facility]-[id number] Procedure Note Hm Interface, Radiology Results Incoming [...] Tissues: Unremarkable. IMPRESSION: No acute cardiopulmonary abnormality. [facility]-[id number] Performing Organization Address City/[facility] Phone Number [facility] [address] [place] [address] * ECG 12 lead (05/28/2018 9:05 PM CDT) Only the most recent of 3 results within the time period is included. Ventricular rate 64 [facility] Atrial rate 64 [facility] GA interval 248 [facility] QRSD interval 164 [facility] QT interval 438 [facility] QTC interval 451 [facility] P axis 1 38 [facility] QRS axis 1 -66 [facility] T wave axis 23 [facility] EKG impression Sinus rhythm with 1st degree [facility] MUSE AV block-Right bundle branch block-Left anterior fascicular block-^^^ Bifascicular block ^^^-Abnormal ECG-In automated comparison with ECG of 26-JUL-2017 06:15,-No significant change was found- Narrative Performed At Performing Organization Address City/State/Zipcode Phone Number [facility] MUSE [address] [place] [address] * Troponin (05/28/2018 9:01 PM CDT) Only the most recent of 3 results within the time period is included. Troponin <0.30 0.00 - 0.30 ng/mL [facility] Comment: HOSPITAL 0.30 - 1.49 ng/mlMay indicate increased risk of acute coronary syndrome. >=1.5 ng/ml Consistent with acute myocardial infarction. The diagnostic value of a single normal or non-diagnostic result is questionable.Serial samples at 2-6 hour intervals are required to rule out acute myocardial injury. Specimen Plasma specimen Performing Organization Address [facility] Phone Number [facility] DEPARTMENT OF [address] [place] [address] PATHOLOGY AND [facility] [address] * Partial thromboplastin time, activated (05/28/2018 9:01 PM CDT) Only the most recent of 2 results within the time period is included. PTT 30.4 23.0 - 36.0 sec [facility] Comment: HOSPITAL PTT therapeutic range for unfractionated heparin is 61.0-112.0 seconds which corresponds to Anti-Xa 0.3-0.7 U/ml. Specimen Blood Performing Organization Address [facility] Phone Number [facility] DEPARTMENT OF [address] [place] [address] PATHOLOGY AND GENOMIC MEDICINE [address] * Prothrombin time with INR (05/28/2018 9:01 PM CDT) Only the most recent of 2 results within the time period is included. Prothrombin time 12.4 11.5 - 14.5 sec [facility] INR 1.0 [facility] The International Normalized Ratio (INR) is a therapeutic monitoring tool for patients who are stable on oral anticoagulant therapy. An INR of 2.0-3.0 is suggested for deep vein thrombosis/pulmonary embolism. Specimen Blood Performing Organization Address [facility]/Zipcode Phone Number [facility] DEPARTMENT OF [address] [place] [address] PATHOLOGY AND GENOMIC MEDICINE [address] * Urinalysis (05/24/2018 12:41 AM CDT) Glucose, UA Negative Negative [facility] Bilirubin, UA Negative Negative [facility] Ketones, UA Negative Negative [facility] Specific gravity, UA 1.010 1.001 - 1.035 [facility] Blood, UA Negative Negative [facility] pH, UA 7.0 5.0 - 8.5 [facility] Protein, UA Negative Negative [facility] Urobilinogen, UA <2.0 <2.0 [facility] Nitrite, UA Negative Negative [facility] Leukocyte esterase, UA Negative Negative [facility] Color, UA Yellow [facility] Appearance, UA Clear [facility] Specimen Urine Performing Organization Address City/[facility] Cent[facility] [place] [address] PATHOLOGY AND GENOMIC MEDICINE[address] * Troponin, I-Stat (05/24/2018 12:41 AM CDT) Troponin, I-Stat 0.00 0.00 - 0.08 ng/mL [facility] Comment: [facility] 0.09 - 1.49 [facility] ng/mlMay indicate increased risk of acute coronary syndrome. >=1.5 ng/ml Consistent with acute myocardial infarction. The diagnostic value of a single normal or non-diagnostic result is questionable.Serial samples at 2-6 hour intervals are required to rule out acute myocardial injury. Specimen Plasma specimen Performing Organization Address City/[facility] [place] [address] PATHOLOGY AND GENOMIC MEDICINE, [address] * B natriuretic pep, I-Stat (05/24/2018 12:41 AM CDT) BNP, I-Stat 178 (H) 0 - 100 pg/mL [facility] Specimen Blood Performing Organization Address City/State/Zipcode Phone Number [facility] OF [address] [address] PATHOLOGY AND GENOMIC MEDICINE, [id number] [place] [address] * Creatine kinase, total (CPK) (05/24/2018 12:41 AM CDT) Creatine kinase 339 39 - 380 U/L [facility] Specimen Plasma specimen Performing Organization Address City/[facility] Phone Number DEPARTMENT OF [address] [address] PATHOLOGY AND GENOMIC MEDICINE[id number] [place] [address] * XR Chest 2 Vw (05/24/2018 12:32 AM CDT) Narrative Performed At EXAMINATION: XR CHEST 2 [facility] CLINICAL HISTORY: htn COMPARISON:07/27/2017 chest x-ray. IMPRESSION: The lungs are clear. No pleural effusion or pneumothorax. The cardiomediastinal silhouette is normal. No acute osseous abnormalities. [facility]-[id number] Procedure Note Interface, Radiology Results Incoming - 05/24/2018 12:41 AM CDT EXAMINATION: XR CHEST 2 VW CLINICAL HISTORY: htn COMPARISON: 07/27/2017 chest x-ray. IMPRESSION: The lungs are clear. No pleural effusion or pneumothorax. The cardiomediastinal silhouette is normal. No acute osseous abnormalities. [facility]-[id number] Performing Organization Address [facility] Phone Number [facility] [address] [place] [address] * Total iron binding capacity (04/30/2018 4:25 PM INTERPRETER TRANSLATOR) Iron level 45 (L) 59 - 158 ug/dL [facility] Iron binding capacity 247 200 - 400 ug/dL [facility] % Saturation 18.2 (L) 20.0 - 40.0 % [facility] Specimen Plasma specimen Performing Organization Address City/[facility]/Zipcode Phone Number [facility] DEPARTMENT OF [address] [place] [address] PATHOLOGY AND GENOMIC MEDICINE [address] * Thyroid stimulating hormone (04/30/2018 4:25 PM INTERPRETER TRANSLATOR) TSH 2.54 0.27 - 4.20 uIU/mL [facility] Specimen Plasma specimen Performing Organization Address City/[facility] Phone Number [facility] [place] [address] PATHOLOGY AND GENOMIC MEDICINE [address] * T4, free (04/30/2018 4:25 PM INTERPRETER TRANSLATOR) T4, free 1.1 0.9 - 1.7 ng/dL [facility] Specimen Plasma specimen Performing Organization Address City/[facility] Phone Number [facility] [place] [address] PATHOLOGY AND GENOMIC MEDICINE [address] * Ferritin level (04/30/2018 4:25 PM INTERPRETER TRANSLATOR) Only the most recent of 2 results within the time period is included. Ferritin level 69 30 - 400 ng/mL [facility] Specimen Plasma specimen Performing Organization Address [facility] Phone Number [facility] [place] [address] PATHOLOGY AND GENOMIC MEDICINE [address] * XR Ankle 3+ Vw Left (02/11/2018 5:22 PM INTERPRETER TRANSLATOR) Narrative Performed At EXAMINATION:XR ANKLE 3VW LEFT [...] soft tissue swelling along the lateral malleolus. [id number] Procedure Note Hm Interface, Radiology Results Incoming - 02/11/2018 5:39 PM INTERPRETER TRANSLATOR EXAMINATION: XR ANKLE 3 VW LEFT CLINICAL [...] soft tissue swelling along the lateral malleolus. [id number] Performing Organization Address [facility]/Zipcode Phone Number [address] [address] * Uric acid level (02/11/2018 3:59 PM INTERPRETER TRANSLATOR) Uric acid 6.3 3.4 - 7.0 mg/dL [facility] Specimen Plasma specimen Performing Organization Address [facility] Phone Number [address] [address] PATHOLOGY AND GENOMIC MEDICINE [address] * Vitamin D 25 hydroxy level (12/17/2017 4:20 PM CDT) Vitamin D, 25-hydroxy 67.0 30.0 - 150.0 ng/mL [facility] DEPARTMENT OF Comment: PATHOLOGY AND This assay reports the sum of aihuishou MEDICINE 25-hydroxy vitamin D3 and 25-hydroxy vitamin [...] alternative methods. Specimen Blood Performing Organization Address [facility] Phone Number [facility] [place] [address] PATHOLOGY AND GENOMIC MEDICINE * Occult blood, stool (09/03/2017 4:11 PM CDT) Occult blood, stool Negative for occult blood. [facility] DEPARTMENT OF Comment: PATHOLOGY AND Specimen Information GENOMIC MEDICINE Specimen Source: Stool Specimen Site: Nonpreserved Specimen Stool - Nonpreserved Performing Organization Address [facility]/Zipcode Phone Number [facility] [place] [address] PATHOLOGY AND GENOMIC MEDICINE * Reticulocyte count (09/03/2017 3:20 PM CDT) Retic %, auto 1.1 0.5 - 2.1 % [facility] DEPARTMENT OF PATHOLOGY AND GENOMIC MEDICINE Retic absolute, auto 0.0454 0.0220 - 0.1260 m/uL [facility] DEPARTMENT OF PATHOLOGY AND GENOMIC MEDICINE Specimen Blood Performing Organization Address City/[facility] [place] [address] PATHOLOGY AND GENOMIC MEDICINE * Serum electrophoresis (09/03/2017 3:20 PM CDT) Protein 6.7 6.3 - 8.3 g/dL [facility] DEPARTMENT OF Comment: PATHOLOGY AND GENOMIC MEDICINE 4.6-7.0 g/dL 1 week 4.4-7.6 g/dL 7 months-1year 5.1-7.3 g/dL 1-2 years5.6-7 .5 g/dL >3 years6.0-8 .0 g/dL 18-150 6.3-8.3 g/dL SPE albumin 4.35 4.00 - 5.30 g/dL [facility] DEPARTMENT OF PATHOLOGY AND GENOMIC MEDICINE SPE alpha 1 0.17 0.10 - 0.25 g/dL [facility] DEPARTMENT OF PATHOLOGY AND GENOMIC MEDICINE SPE alpha 2 0.77 0.58 - 0.84 g/dL [facility] DEPARTMENT OF PATHOLOGY AND GENOMIC MEDICINE SPE beta 0.80 0.50 - 1.10 g/dL [facility] DEPARTMENT OF PATHOLOGY AND GENOMIC MEDICINE SPE gamma 0.61 0.60 - 1.30 g/dL [facility] DEPARTMENT OF PATHOLOGY AND GENOMIC MEDICINE SPE extended See CommentComment: A normal [facility] DEPARTMENT OF interpretation serum protein study. PATHOLOGY AND GENOMIC MEDICINE SPE interpretation See CommentComment: [place] [facility] DEPARTMENT OF Juan, PhD; Marga Bello, PhD; Vicki DE AND MD Issac GENOMIC MEDICINE Specimen Serum Performing Organization Address City/[facility] [place] [address] PATHOLOGY AND GENOMIC MEDICINE * Immunoglobulin E (09/03/2017 3:20 PM CDT) IgE 31.9 0.0 - 100.0 IU/mL [facility] DEPARTMENT OF PATHOLOGY AND GENOMIC MEDICINE Specimen Plasma specimen Performing Organization Address City/[facility]/[place] [address] PATHOLOGY AND GENOMIC MEDICINE * Immunoglobulin A (09/03/2017 3:20 PM CDT) IgA 297 70 - 400 mg/dL [facility] DEPARTMENT OF PATHOLOGY AND GENOMIC MEDICINE Specimen Plasma specimen Performing Organization Address City/[facility] [place] [address] PATHOLOGY AND GENOMIC MEDICINE * Immunoglobulin M (09/03/2017 3:20 PM CDT) IgM 44 33 - 255 mg/dL [facility] DEPARTMENT OF PATHOLOGY AND GENOMIC MEDICINE Specimen Plasma specimen Performing Organization Address City/[facility] Phone Number [facility] [place] [address] PATHOLOGY AND GENOMIC MEDICINE * Immunoglobulin G (09/03/2017 3:20 PM CDT) IgG 846 700 - 1,600 mg/dL [facility] DEPARTMENT OF PATHOLOGY AND GENOMIC MEDICINE Specimen Plasma specimen Performing Organization Address City/[facility] [place] [address] PATHOLOGY AND GENOMIC MEDICINE * Folate level (09/03/2017 3:20 PM CDT) Folate >20.0 4.8 - 24.2 ng/mL [facility] DEPARTMENT OF PATHOLOGY AND GENOMIC MEDICINE Specimen Serum Performing Organization Address City/[facility] [place] [address] PATHOLOGY AND GENOMIC MEDICINE * Vitamin B12 level (09/03/2017 3:20 PM CDT) Vitamin B12 500 211 - 946 pg/mL [facility] DEPARTMENT OF Comment: PATHOLOGY AND Significant overlap exists GENOMIC MEDICINE between normal and deficiency states. However, most patients with deficiencies will have Serum B12 <200 pg/mL. Specimen Serum Performing Organization Address [facility] [place] [address] PATHOLOGY AND GENOMIC MEDICINE * Cv exercise treadmill stress (no imaging) (08/16/2017 11:33 AM CDT) Resting HR 56 [facility] Resting BP 151 [facility] Peak MET Achieved 1.0 [facility] Protocol Name REGLUZ MARINAO [facility] Time in Exercise Phase 00:01:00 [facility] Max Systolic BP 151 [facility] Max Diastolic BP 69 [facility] Max Heart Rate 74 [facility] Max Predicted Heart Rate 143 [facility] Target HR Formula (220 - Age)*100% [facility] Test Indication EXTREME FATIGUE [facility] Arrhy During Ex [facility] ECG Interp Before EX [facility] ECG Interp During Ex [facility] Ex Summary Comment [facility] Overall HR Response to [facility] Exercise Overall BP Response To [facility] Exercise Reason for Termination [facility] Stress Test Impression -Waveform interpreted in [facility] report associated with image study. No interpretation is provided as part of this Stress ECG report.-Electronically Signed By Raimundo RHOADES, Tiffani Cyr ([id number]), slot editor Leobardo Senior ([id number]) on 08/16/2017 3:09:11 PM Performing Organization Address City/State/Zipcode Phone Number [facility] [address] [place] [address] * Cv myocardial perfusion (08/16/2017 11:33 AM CDT) Narrative Performed At [facility] Nuclear Cardiology and Cardiac CT [address] [place] [address] Myocardial Perfusion Imaging Report Stress ECG tracings are available in MUSE, EPIC and CV Web All ECG interpretations are included in this report Pat.Name:SUYAPA MONCADA STEWARTat.ID:[id number] .Date: 08/16/2017 Refer.MD:DUTCH GRAFF MD Exam Time: 11:56:00 AM Study Type:Myocardial Perfusion Imaging Height:64inBSA: 1.89 m2 DOBAge:1940,76YSex: MALE BP:151/69HR: 54 bpm Nuclear Tech:Bandar Grady [facility]/ [place], [place](N) Pat. Stat.:Outpatient Nuclear Event ID:[id number] Order ID:[id number] Reason for Study:Shortness of breath History / [...] CDT Nuclear Cardiology and Cardiac CT [address] [address] Myocardial Perfusion Imaging Report Stress ECG tracings are available in [facility], [email or web address] and [email or web address] All ECG interpretations are included in this report Pat.Name: CORAL SUYAPA Braden Pat.ID: [id number] .Date: 08/16/2017 Refer.MD: DUTCH GRAFF MD Exam Time: 11:56:00 AM Study Type:Myocardial Perfusion Imaging Height: 64in BSA: 1.89 m2 Age: 7 1940,76Y Sex: MALE BP: 151/69 HR: 54 bpm Nuclear Tech:Bandar Grady, [facility]/ Mabel Vásquez [facility](N) Pat. Stat.:Outpatient Nuclear Event ID:[id number] Order ID: [id number] Reason for Study:Shortness of breath History / [...] Jose Rafael Chisholm MD Performing Organization Address City/[facility]/Zipcode Phone Number [facility] [address] [place] [address] * POC glucose (07/30/2017 8:24 PM CDT) Only the most recent of 22 results within the time period is included. POC glucose 138 (H) 65 - 99 mg/dL [facility] DEPARTMENT OF Comment: PATHOLOGY AND ON LICENSE OF [facility] Notified RN GENOMIC MEDICINE Meter ID: [id number] [place] Library Director: Tiburcio Yun Performing Organization Address [facility]/Zipcode Phone Number [address] [address] PATHOLOGY AND GENOMIC MEDICINE * Vancomycin level, trough (07/29/2017 11:40 AM CDT) Vancomycin, trough 11.1 10.0 - 20.0 ug/mL [facility] DEPARTMENT OF Comment: PATHOLOGY AND Therapeutic Ranges: GENOMIC MEDICINE Peak 30.0 - 40.0 ug/mL Tkgwiz99.0 - 20.0 ug/mL Specimen Serum Performing Organization Address [facility] [place] [address] PATHOLOGY AND GENOMIC MEDICINE * Estimated GFR (07/29/2017 7:09 AM CDT) Only the most recent of 7 results within the time period is included. GFR Non Af Amer 82 mL/min/1.73 m2 [facility] DEPARTMENT OF PATHOLOGY AND GENOMIC MEDICINE GFR Af Amer >90 mL/min/1.73 m2 [facility] DEPARTMENT OF Comment: PATHOLOGY AND Chronic kidney disease: <60 GENOMIC MEDICINE mL/min/1.73m2 Kidney failure: <15 mL/min/1.73m2 The estimated GFR is calculated from the IDFL-traceable Modification of Diet in Renal Disease Equation. The accuracy of the calculation is poor when the creatinine is normal. Calculated values >90 mL/min/1.73m2 are not reported. This equation has not been validated in children (<18 years), women, the elderly (>70 years), or ethnic groups other than Caucasians and Americans. Specimen Plasma specimen Performing Organization Address City/[facility] Phone Number [facility] DEPARTMENT OF [address] [place] [address] PATHOLOGY AND GENOMIC MEDICINE * Fungus smear (07/26/2017 11:42 AM CDT) Fungus smear No fungi observed. [facility] DEPARTMENT OF Comment: PATHOLOGY AND Specimen Information GENOMIC MEDICINE Specimen Source: Abscess Specimen Site: Mandible Submental abscess Specimen Abscess Performing Organization Address [facility] Phone Number [facility] [place] [address] PATHOLOGY AND GENOMIC MEDICINE * AFB culture (07/26/2017 11:42 AM CDT) AFB culture isolate No growth after 6 weeks of [facility] DEPARTMENT OF incubation. PATHOLOGY AND Comment: GENOMIC MEDICINE Specimen Information Specimen Source: Abscess Specimen Site: Mandible Submental abscess Specimen Abscess Performing Organization Address [facility] Phone Number [facility] [place] [address] PATHOLOGY AND GENOMIC MEDICINE * Aerobic culture (07/26/2017 11:42 AM CDT) Aerobic culture isolate Diphtheroids [facility] DEPARTMENT OF Few PATHOLOGY AND (A) GENOMIC MEDICINE Comment: Specimen Information Specimen Source: Abscess Specimen Site: Mandible Submental abscess Aerobic culture isolate Staphylococcus, coagulase [facility] DEPARTMENT OF negative PATHOLOGY AND Few GENOMIC MEDICINE (A) Aerobic culture isolate Alpha Strep, not pneumococcus [facility] DEPARTMENT OF Few PATHOLOGY AND Few GENOMIC MEDICINE (A) Specimen Abscess - Mandible Performing Organization Address [facility] Phone Number [facility] [place] [address] PATHOLOGY AND GENOMIC MEDICINE * Gram stain (07/26/2017 11:42 AM CDT) Only the most recent of 2 results within the time period is included. Gram stain isolate Few WBC's [facility] DEPARTMENT OF No organisms seen PATHOLOGY AND Comment: GENOMIC MEDICINE Specimen Information Specimen Source: Abscess Specimen Site: Mandible Submental abscess Specimen Abscess Performing Organization Address City/[facility] Phone Number [facility] DEPARTMENT OF [address] [place] [address] PATHOLOGY AND GENOMIC MEDICINE * AFB stain (07/26/2017 11:42 AM CDT) AFB stain No acid fast bacilli (AFB) [facility] DEPARTMENT OF seen. PATHOLOGY AND Comment: GENOMIC MEDICINE Specimen Information Specimen Source: Abscess Specimen Site: Mandible Submental abscess Specimen Abscess Performing Organization Address City/[facility] Phone Number [facility] DEPARTMENT OF [address] [place] [address] PATHOLOGY AND GENOMIC MEDICINE * Fungus culture (07/26/2017 11:42 AM CDT) Fungus culture isolate No growth after 4 weeks of [facility] DEPARTMENT OF incubation. PATHOLOGY AND Comment: GENOMIC MEDICINE Specimen Information Specimen Source: Abscess Specimen Site: Mandible Submental abscess Specimen Abscess - Mandible Performing Organization Address [facility] Phone Number [facility] DEPARTMENT OF [address] [place] [address] PATHOLOGY AND GENOMIC MEDICINE * Anaerobic culture (07/26/2017 11:42 AM CDT) Anaerobic culture isolate Prevotella species (A) [facility] DEPARTMENT OF Comment: PATHOLOGY AND Specimen Information GENOMIC MEDICINE Specimen Source: Abscess Specimen Site: Mandible Submental abscess Anaerobic culture isolate Eubacterium brachy (A) [facility] DEPARTMENT OF PATHOLOGY AND GENOMIC MEDICINE Anaerobic culture isolate Atopobium rimae (A) [facility] DEPARTMENT OF PATHOLOGY AND GENOMIC MEDICINE Specimen Abscess - Mandible Performing Organization Address [facility] Phone Number [facility] DEPARTMENT OF [address] [place] [address] PATHOLOGY AND GENOMIC MEDICINE * Lactic acid level (07/26/2017 5:00 AM CDT) Only the most recent of 2 results within the time period is included. Lactic acid 0.8 0.5 - 2.2 mmol/L [facility] DEPARTMENT OF PATHOLOGY AND GENOMIC MEDICINE Specimen Plasma specimen Performing Organization Address City/[facility] Phone Number [facility] [place] [address] PATHOLOGY AND GENOMIC MEDICINE * Ionized calcium (07/26/2017 5:00 AM CDT) pH 7.53 [facility] DEPARTMENT OF PATHOLOGY AND GENOMIC MEDICINE Ionized calcium 1.03 (L) 1.11 - 1.32 mmol/L [facility] DEPARTMENT OF PATHOLOGY AND GENOMIC MEDICINE Specimen Plasma specimen Performing Organization Address [facility] [place] [address] PATHOLOGY AND GENOMIC MEDICINE * Respiratory pathogen panel (07/26/2017 4:50 AM CDT) Respiratory pathogen Negative for all pathogens [facility] DEPARTMENT OF panel tested: PATHOLOGY AND Negative for Adenovirus [facility] Negative for Coronavirus HKU1 Negative for Coronavirus [...] Specimen Nares - Right Performing Organization Address [facility] Phone Number [place] [phone] PATHOLOGY AND [facility]uish[facility] MEDICINE * Venous blood gas (07/26/2017 4:40 AM CDT) pH, venous 7.36 7.32 - 7.42 [facility] DEPARTMENT OF PATHOLOGY AND GENOMIC MEDICINE pCO2, venous 41 (L) 45 - 51 mmHg [facility] DEPARTMENT OF PATHOLOGY AND GENOMIC MEDICINE pO2, venous 92 (H) 25 - 40 mmHg [facility] DEPARTMENT OF PATHOLOGY AND GENOMIC MEDICINE Base excess, venous -2 -2 - 2 meq/L [facility] DEPARTMENT OF PATHOLOGY AND GENOMIC MEDICINE O2 saturation, venous 98 (H) 40 - 70 % [facility] DEPARTMENT OF PATHOLOGY AND GENOMIC MEDICINE Bicarbonate, venous 22.4 21.0 - 28.0 mmol/L [facility] DEPARTMENT OF PATHOLOGY AND GENOMIC MEDICINE Specimen Blood Performing Organization Address [facility] Phone Number [facility] DEPARTMENT OF [address] [place] [address] PATHOLOGY AND GENOMIC MEDICINE * CT Soft [...] at 07/26/2017 12:17 AM who verbalized understanding. [facility]-[id number] Procedure Note Interface, Radiology Results Incoming - [...] at 07/26/2017 12:17 AM who verbalized understanding. [facility]-[id number] Performing Organization Address City/[facility] Phone Number [facility] [address] [place] [address] * ECG ED Preliminary Interpretation - NOT AN ORDER (07/25/2017 9:30 PM CDT) Narrative Performed At Ashley Cuba MD 07/30/2017 11:33 AM ECG ED Preliminary Interpretation - Not an Order Performed by: ASHLEY CUBA Authorized by: ASHLEY CUBA ECG reviewed by ED Physician in the absence of a counter sales person: yes Interpretation: Interpretation: abnormal Rate: ECG rate:86 ECG rate assessment: normal Rhythm: Rhythm: sinus rhythm QRS: QRS axis:Left QRS intervals:Normal ST segments: ST segments:Normal Comments: LAE * Blood culture, aerobic & anaerobic (07/25/2017 8:05 PM CDT) Only the most recent of 2 results within the time period is included. Blood culture isolate No growth after 5 days of [facility] DEPARTMENT OF incubation. PATHOLOGY AND Comment: GENOMIC MEDICINE Specimen Information Specimen Source: Blood Specimen Site: Antecubital, right Specimen Blood - Antecubital, right Performing Organization Address City/[facility] Phone Number [facility] DEPARTMENT OF [address] [place] [address] PATHOLOGY AND GENOMIC MEDICINE * Lactic acid level, SEPSIS - Now and repeat 2x every 3 hours (07/25/2017 7:55 PM CDT) Lactic acid 1.7 0.5 - 2.2 mmol/L [facility] DEPARTMENT OF PATHOLOGY AND GENOMIC MEDICINE Specimen Plasma specimen Performing Organization Address [facility] Phone Number [facility] DEPARTMENT OF [address] [place] [phone] PATHOLOGY AND GENOMIC MEDICINE after 06/22/2017 Insurance Payer Benefit Subscriber ID Type Phone Address Plan / Group MEDICARE MEDICARE xxxxxxxxxxx Medicare [place], [place] PART A AND B AETNA AETNA xxxxxxxxxx HMO HMO,POS,EP O, MC/EC Advance Directives Patient has advance care planning documents on file. For more information, augustina barrios contact: Campbell Mcgee [address] [place] [address]
== END 2018-06-23 22:21 | disposition home or self-care (01) ==
LOC: FSED 21:52
DX: Z48.00 Encounter for change or removal of nonsurgical wound dressing (principal)
CPT/HCPCS: 99282

== ENCOUNTER 2018-07-01 23:41 | Emergency (ER) | payer OTHER, MEDICARE ==
[~2018-07-01] VITALS: Ht 167.6 cm; Wt 83.9 kg
--- OUTSIDE RECORDS SUMMARY | 2018-07-01 23:46 | XMS REPORT | Clinical Summary ---
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 07/19/2017 Transcribe Procedural Cardiology Orders after 06/30/2017 Social History Date Tobacco Use Types Packs/Day [...] MMODE SPECTRAL 11:25 AM CDT COLOR DOPPLER ([id number]) ESTIMATED GFR Routine 05/29/2018 3:48 AM CDT [...] CDT ESTIMATED GFR Routine 04/30/2018 4:25 PM CATTLE PRODUCERS FERRITIN LEVEL Routine 04/30/2018 Opioid abuse, 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) Anemia, unspecified type Other fatigue 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 COMPLETE BLD COUNT Routine 04/30/2018 Opioid abuse, in W/AUTO DIFF 4:25 PM CATTLE PRODUCERS remission (HCC) Anemia, unspecified type Other fatigue 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 TOTAL IRON BINDING Routine 04/30/2018 Opioid abuse, in CAPACITY 4:25 PM CATTLE PRODUCERS remission (HCC) Anemia, unspecified type Other fatigue 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 THYROID STIMULATING Routine 04/30/2018 Opioid abuse, in HORMONE 4:25 PM CATTLE PRODUCERS remission (HCC) Anemia, unspecified type Other fatigue 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 T4, FREE Routine 04/30/2018 Opioid abuse, 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) Anemia, unspecified type Other fatigue 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 Atraumatic intubation att x 1 by CHEMICAL UNIT OPERATOR with Glidescope #4 blade without complicati ons. [...] 07/25/2017 W/AUTO DIFF 1:52 AM CDT after 06/30/2017 Results * Estimated GFR (06/01/2018 4:00 AM CDT) Only the most recent of 9 results within the time period is included. Estimated GFR 58 (A) mL/min/1.73 m2 [facility] Comment: HOSPITAL CatergoryUnitsInt rpretation G1 >=90 Normal or high G2 60-89Mildly decreased [id number] Mildly to moderately decreased P5y08-12 Moderately to severely decreased G4 15-29Severely decreased G5 <15Kidney failure The eGFR was calculated using the Chronic Kidney Disease Epidemiology Collaboration (CKD-EPI) equation. Interpretation is based on recommendations of the National Kidney Foundation-Kidney Disease Outcomes Quality Initiative (NKF-KDOQI) published in 2014. Specimen Plasma specimen Performing Organization Address City/[facility] Phone Number [facility] [place] [address] PATHOLOGY AND [facility] MEDICINE [address] * Phosphorus level (06/01/2018 4:00 AM CDT) Only the most recent of 7 results within the time period is included. Phosphorus 3.3 2.4 - 4.5 mg/dL [facility] Specimen Plasma specimen Performing Organization Address City/[facility] Cent[facility]ode Phone Number [facility] [place] [address] PATHOLOGY AND [facility] MEDICINE [address] * Magnesium level (06/01/2018 4:00 AM CDT) Only the most recent of 6 results within the time period is included. Magnesium 2.1 1.6 - 2.4 mg/dL [facility] Specimen Plasma specimen Performing Organization Address City/[facility] Cent[facility]ode Phone Number [facility] [place] [address] PATHOLOGY AND [facility] MEDICINE [address] * Basic metabolic panel (06/01/2018 4:00 AM CDT) Only the most recent of 10 results within the time period is included. Sodium 127 (L) 135 - 148 mEq/L [facility] Potassium 4.9 3.5 - 5.0 mEq/L [facility] Chloride 93 (L) 98 - 112 mEq/L [facility] CO2 23 (L) 24 - 31 mEq/L [facility] Anion gap 11@ANIO 7 - 15 mEq/L [facility] BUN 13 8 - 23 mg/dL [facility] Creatinine 1.19 0.70 - 1.20 mg/dL [facility] Glucose 88 65 - 99 mg/dL [facility] Calcium 9.1 8.8 - 10.2 mg/dL [facility] Specimen Plasma specimen Performing Organization Address City/[facility] Phone Number [facility] [place] [address] PATHOLOGY AND [facility] MEDICINE [address] * Sodium level (05/30/2018 6:02 PM CDT) Sodium 124 (L) 135 - 148 mEq/L [facility] Specimen Plasma specimen Performing Organization Address City/[facility] Phone Number [facility] [place] [address] PATHOLOGY AND [facility] MEDICINE [address] * Sodium level, urine, random (05/29/2018 11:13 PM CDT) Only the most recent of 2 results within the time period is included. Sodium, urine, random 38 mEq/L [facility] Specimen Urine Performing Organization Address City/[facility] Centercode Phone Number [facility] [place] [address] PATHOLOGY AND GENOMIC MEDICINE [address] * Osmolality, urine (05/29/2018 11:13 PM CDT) Only the most recent of 2 results within the time period is included. Osmolality, urine 229 50 - 1,400 mOsm/kg [facility] Specimen Urine Performing Organization Address City/[facility] Centercode Phone Number [facility] [place] [address] PATHOLOGY AND GENOMIC MEDICINE [address] * Osmolality, serum (05/29/2018 7:20 PM CDT) Osmolality 254 (L)Comment: Results double 275 - 295 mOsm/kg [facility] Specimen Blood Performing Organization Address City/State/Zipcode Phone Number [facility] DEPARTMENT OF [address] [place] [address] PATHOLOGY AND GENOMIC MEDICINE [facility] [address] [place] [address] HOSPITAL * Us duplex venous lower extremity (05/29/2018 12:05 PM CDT) Only the most recent of 2 results within the time period is included. Narrative Performed At [facility] Lower Extremity Venous Report [address] [facility], [facility] [address], [place] [address] Pat.Name:SUYAPA MONCADA Sanford.ID:[id number] .Date: 05/29/2018Refer.MD:ELLEN PÉREZ DO Exam Time: 11:28:00 AM Study Type:LE Venous Height:64inWeight:189lb BSA: 1.91 m2 DOBAge:1940,77Y Sex: MALESonogrphr: Dee Dee Peters RVT Pat. Stat.:Inpatient [facility] TapeVol: LN, CPT - 4: 87708 Echo Event ID:[id number] Order ID:[id number] Reason for Study:Leg swelling and pain. History [...] Ultrasound Laboratory Lower Extremity Venous Report [address] [place] [address] Pat.Name: SUYAPA MONCADA Pat.ID: [id number] .Date: 05/29/2018 Refer.MD: ELLEN PÉREZ DO Exam Time: 11:28:00 AM Study Type:LE Venous Height: 64in Weight: 189lb BSA: 1.91 m2 Age: 6 1940,77Y Sex: MALE Sonogrphr: Dee Dee Peters RVT Pat. Stat.:Inpatient Room: [address] Vol: LN, CPT - 4: 55555 Echo Event ID:[id number] Order ID: [id number] Reason for Study:Leg swelling and pain. History [...] RPVI Performing Organization Address City/State/Zipcode Phone Number [facility] [address] [place] [address] * Echocardiogram complete w contrast and 3D if needed (05/29/2018 11:25 AM CDT) Narrative Performed At [facility] Echocardiography Report [address] [place] [address] Pat.Name:SUYAPA MONCADA.ID:[id number] .Date: 05/29/2018Refer.MD:ELLEN PÉREZ DO Exam Time: 10:45:00 AM Study Type:Routine Echo Height:66inWeight:189lb BSA: 1.95 m2 DOBAge:1940,77Y Sex: MALEBP:162/62 HR:67 bpmSonogrphr: EVANGELIST Bynum Pat. Stat.:Inpatient Room:A7 Study Status:Final Echo Event ID:[id number] Order ID:[id number] Reason for Study:SOB, abn CXR, heart failure [...] RAPof 5 mmHg. MEASUREMENTS: 2D Parasternal Long Penrose LVIDd5.6 cmIndex2.9 cm/m Ao An2.4 cm LVIDs4.4 cmAo Rtd 3.3 cm Index1.7 cm/m LV%fs 21.4 % LV Sfvv248.6 g(122-174) IVSd 0.8 cmLVM Index 98.3 g/m2 LVPWd1 cmRWT0.4 LA Ds3.1 cmLVOT 2 cm LA Sng Plane LA Area 21.5 cm2(8.8-23.4) LA Vol65.5 ml Index33.6 ml/m LA LngAx 5.8 cm RA Sng Plane RA Area 23.2 cm2(8.3-19.5) RA Vol73.2 ml Index37.6 ml/m RA LngAx 5.6 cm DOPPLER LVOT Stroke Vol LVOT 2.4 cmLVOT CO6.1 l/min LVOT TVI22 cmLVOT CI3.1 l/m/m2 LVOT Tm304 [id number] bpm LVOT SV 99.3 ml Signed 05/29/2018 03:14 PM Kourtney Willingham MD Procedure Note Interface, Radiology Results In - 05/29/2018 3:25 PM CDT Echocardiography Report [address] [place] [id number] Pat.Name: SUYAPA MONCADA Pat.ID: [id number] St.Date: 05/29/2018 Refer.MD: ELLEN PÉREZ DO Exam Time: 10:45:00 AM Study Type:Routine Echo Height: 66in Weight: 189lb BSA: 1.95 m2 Age: 6 1940,77Y Sex: MALE BP: 162/62 HR: 67 bpm Sonogrphr: EVANGELIST Bynum Pat. Stat.:Inpatient Room: A744 Study Status:Final Echo Event ID:[id number] Order ID: [id number] Reason for Study:SOB, abn CXR, heart failure [...] of 5 mmHg. MEASUREMENTS: 2D Parasternal Long Penrose LVIDd 5.6 cm Index 2.9 cm/m Ao [...] Organization Address City/State/Zipcode Phone Number [facility] [address] [place] [address] * CBC with platelet and differential (05/29/2018 3:48 AM CDT) Only the most recent of 12 results within the time period is included. WBC 5.02 4.50 - 11.00 k/uL [facility] RBC 3.60 (L) 4.40 - 6.00 m/uL [facility] HGB 11.1 (L) 14.0 - 18.0 g/dL [facility] HCT 31.8 (L) 41.0 - 51.0 % [facility] MCV 88.3 82.0 - 100.0 fL [facility] MCH 30.8 27.0 - 34.0 pg [facility] MCHC 34.9 31.0 - 37.0 g/dL [facility] RDW - SD 39.6 37.0 - 55.0 fL [facility] MPV 9.9 8.8 - 13.2 fL [facility] Platelet count 194 150 - 400 k/uL [facility] Nucleated RBC 0.00 /100 WBC [facility] Neutrophils 52.8 39.0 - 69.0 % [facility] Lymphocytes 26.5 25.0 - 45.0 % [facility] Monocytes 16.3 (H) 0.0 - 10.0 % [facility] Eosinophils 3.2 0.0 - 5.0 % [facility] Basophils 1.0 0.0 - 1.0 % [facility] Immature granulocytes 0.2Comment: "Immature 0.0 - 1.0 % [facility] granulocytes" (promyelocytes, HOSPITAL myelocytes, metamyelocytes) Specimen Blood Performing Organization Address City/[facility]/Zipcode Phone Number [facility] [place] [address] PATHOLOGY AND GENOMIC MEDICINE [address] * B natriuretic peptide (05/29/2018 3:48 AM CDT) Only the most recent of 4 results within the time period is included. BNP 303 (H) 0 - 100 pg/mL [facility] Specimen Blood Narrative Performed At NA results called to and read back by SAÚL FOSTER/Rodri [facility] DEPARTMENT OF AT05/29/201804:47 BY HI PATHOLOGY AND GENOMIC MEDICINE Performing Organization Address City/[facility]/Zipcode Phone Number [facility] DEPARTMENT OF [address] [place] [address] PATHOLOGY AND GENOMIC MEDICINE [address] * Comprehensive metabolic panel (05/29/2018 3:48 AM CDT) Only the most recent of 6 results within the time period is included. Sodium 120 (LL) 135 - 148 mEq/L [facility] Potassium 4.7 3.5 - 5.0 mEq/L [facility] Chloride 85 (L) 98 - 112 mEq/L [facility] CO2 23 (L) 24 - 31 mEq/L [facility] Anion gap 12@ANIO 7 - 15 mEq/L [facility] BUN 11 8 - 23 mg/dL [facility] Creatinine 0.99 0.70 - 1.20 mg/dL [facility] Glucose 129 (H) 65 - 99 mg/dL [facility] Calcium 8.7 (L) 8.8 - 10.2 mg/dL [facility] Protein 6.2 (L) 6.3 - 8.3 g/dL [facility] Comment: HOSPITAL [place] 4.6-7.0 g/dL 1 week 4.4-7.6 g/dL 7 months-1year 5.1-7.3 g/dL 1-2 years5.6-7 .5 g/dL >3 years6.0-8 .0 g/dL 18-150 6.3-8.3 g/dL Albumin 3.1 (L) 3.5 - 5.0 g/dL [facility] A/G ratio 1.0 0.7 - 3.8 [facility] Alkaline phosphatase 76 40 - 129 U/L [facility] AST 43 10 - 50 U/L [facility] ALT 23 5 - 50 U/L [facility] Total bilirubin 0.4 0.0 - 1.2 mg/dL [facility] Specimen Plasma specimen Performing Organization Address City/State/Zipcode Phone Number [facility] DEPARTMENT OF [address] [place] [address] PATHOLOGY AND GENOMIC MEDICINE [address] * Urinalysis screen and microscopy, with reflex to culture (05/29/2018 1:52 AM CDT) Only the most recent of 3 results within the time period is included. Specimen site Clean catch [facility] Color, UA Straw [facility] Appearance, UA Clear [facility] Specific gravity, UA 1.006 1.001 - 1.035 [facility] pH, UA 7.0 5.0 - 8.5 [facility] Protein, UA Negative Negative [facility] Glucose, UA Negative Negative [facility] Ketones, UA Trace (A) Negative [facility] Bilirubin, UA Negative Negative [facility] Blood, UA Negative Negative [facility] Nitrite, UA Negative Negative [facility] Urobilinogen, UA <2.0 <2.0 [facility] Leukocyte esterase, UA Negative Negative [facility] WBC, UA <1 0 - 1 /HPF [facility] RBC, UA 1 0 - 5 /HPF [facility] Bacteria, UA None seen None seen [facility] Yeast, UA None seen [facility] Yeast with pseudohyphae, None seen [facility] Specimen Urine Performing Organization Address City/[facility] Cent[facility]ode Phone Number [facility] [place] [address] PATHOLOGY AND GENOMIC MEDICINE [address] * Creatinine level, urine, random (05/29/2018 1:52 AM CDT) Creatinine, urine, random 28 mg/dL [facility] Specimen Urine Performing Organization Address [facility] Phone Number [facility] [place] [address] PATHOLOGY AND GENOMIC MEDICINE [address] * Chloride level, urine, random (05/29/2018 1:52 AM CDT) Chloride, urine, random 52 mEq/L [facility] Specimen Urine Performing Organization Address City/[facility] Phone Number [facility] [place] [address] PATHOLOGY AND [facility] MEDICINE [address] * Urine culture (05/29/2018 1:52 AM CDT) Only the most recent of 3 results within the time period is included. Urine culture SEE COMMENTComment: [facility] Bacteriuria screen negative. HOSPITAL Performing Organization Address City/[facility] Phone Number [facility] [place] [address] PATHOLOGY AND GENOMIC MEDICINE [address] * XR Chest 1 Vw Portable [...] IMPRESSION: No acute cardiopulmonary abnormality. [facility]-[id number] Procedure Note Hm Interface, Radiology Results Incoming [...] IMPRESSION: No acute cardiopulmonary abnormality. [facility]-[id number] Performing Organization Address City/[facility] Phone Number [facility] [address] [place] [address] * ECG 12 lead (05/28/2018 9:05 PM CDT) Only the most recent of 3 results within the time period is included. Ventricular rate 64 [facility] Atrial rate 64 [facility] MD interval 248 [facility] QRSD interval 164 [facility] QT interval 438 [facility] QTC interval 451 [facility] P axis 1 38 [facility] QRS axis 1 -66 [facility] T wave axis 23 [facility] EKG impression Sinus rhythm with 1st degree [facility] MUSE AV block-Right bundle branch block-Left anterior fascicular block-^^^ Bifascicular block ^^^-Abnormal ECG-In automated comparison with ECG of 26-JUL-2017 06:15,-No significant change was found- Narrative Performed At Performing Organization Address City/State/Zipcode Phone Number [facility] MUSE [address] [place] [address] * Troponin (05/28/2018 9:01 PM CDT) Only the most recent of 3 results within the time period is included. Troponin <0.30 0.00 - 0.30 ng/mL [facility] Comment: HOSPITAL 0.30 - 1.49 ng/mlMay indicate increased risk of acute coronary syndrome. >=1.5 ng/ml Consistent with acute myocardial infarction. The diagnostic value of a single normal or non-diagnostic result is questionable.Serial samples at 2-6 hour intervals are required to rule out acute myocardial injury. Specimen Plasma specimen Performing Organization Address [facility] Centercode Phone Number [facility] DEPARTMENT OF [address] [place] [address] PATHOLOGY AND [facility] MEDICINE [address] * Partial thromboplastin time, activated (05/28/2018 9:01 PM CDT) Only the most recent of 2 results within the time period is included. PTT 30.4 23.0 - 36.0 sec [facility] Comment: HOSPITAL PTT therapeutic range for unfractionated heparin is 61.0-112.0 seconds which corresponds to Anti-Xa 0.3-0.7 U/ml. Specimen Blood Performing Organization Address [facility] Phone Number [facility] DEPARTMENT OF [address] [place] [address] PATHOLOGY AND GENOMIC MEDICINE [address] * Prothrombin time with INR (05/28/2018 9:01 PM CDT) Only the most recent of 2 results within the time period is included. Prothrombin time 12.4 11.5 - 14.5 sec [facility] INR [address] [facility] Comment: [facility]ITAL The International Normalized Ratio (INR) is a therapeutic monitoring tool for patients who are stable on oral anticoagulant therapy. An INR of 2.0-3.0 is suggested for deep vein thrombosis/pulmonary embolism. Specimen Blood Performing Organization Address [facility]/Zipcode Phone Number [facility] DEPARTMENT OF [address] [place] [address] PATHOLOGY AND GENOMIC MEDICINE [address] * Urinalysis (05/24/2018 12:41 AM CDT) Glucose, UA Negative Negative [facility] Bilirubin, UA Negative Negative [facility] Ketones, UA Negative Negative [facility] Specific gravity, UA 1.010 1.001 - 1.035 [facility] Blood, UA Negative Negative [facility] pH, UA 7.0 5.0 - 8.5 [facility] Protein, UA Negative Negative [facility] Urobilinogen, UA <2.0 <2.0 [facility] Nitrite, UA Negative Negative [facility] Leukocyte esterase, UA Negative Negative [facility] Color, UA Yellow [facility] Appearance, UA Clear [facility] Specimen Urine Performing Organization Address City/[facility] Centercode [place] [address] PATHOLOGY AND GENOMIC MEDICINE[address] * Troponin, I-Stat (05/24/2018 12:41 AM CDT) Troponin, I-Stat 0.00 0.00 - 0.08 ng/mL [facility] Comment: [facility] 0.09 - 1.49 [facility] ng/mlMay indicate increased risk of acute coronary syndrome. >=1.5 ng/ml Consistent with acute myocardial infarction. The diagnostic value of a single normal or non-diagnostic result is questionable.Serial samples at 2-6 hour intervals are required to rule out acute myocardial injury. Specimen Plasma specimen Performing Organization Address City/[facility] [place] [address] PATHOLOGY AND GENOMIC MEDICINE, [address] * B natriuretic pep, I-Stat (05/24/2018 12:41 AM CDT) BNP, I-Stat 178 (H) 0 - 100 pg/mL [facility] Specimen Blood Performing Organization Address City/State/Zipcode Phone Number [facility] [address] [place] [phone] PATHOLOGY AND GENOMIC MEDICINE, [id number] [place] [address] * Creatine kinase, total (CPK) (05/24/2018 12:41 AM CDT) Creatine kinase 339 39 - 380 U/L [facility] Specimen Plasma specimen Performing Organization Address City/[facility] Centercode Phone Number DEPARTMENT OF [address] [place] [address] PATHOLOGY AND GENOMIC MEDICINE[id number] [place] [address] * XR Chest 2 Vw (05/24/2018 12:32 AM CDT) Narrative Performed At EXAMINATION: [facility] 2 [facility] CLINICAL H[facility]ORY: htn COMPARISON:07/27/2017 chest x-ray. IMPRESSION: The lungs are clear. No pleural effusion or pneumothorax. The cardiomediastinal silhouette is normal. No acute osseous abnormalities. [facility]-[id number] Procedure Note Interface, Radiology Results Incoming - 05/24/2018 12:41 AM CDT EXAMINATION: XR CHEST 2 VW CLINICAL HISTORY: htn COMPARISON: 07/27/2017 chest x-ray. IMPRESSION: The lungs are clear. No pleural effusion or pneumothorax. The cardiomediastinal silhouette is normal. No acute osseous abnormalities. [facility]-[id number] Performing Organization Address [facility] Centercode Phone Number [facility] [address] [place] [address] * Total iron binding capacity (04/30/2018 4:25 PM [employer]) Iron level 45 (L) 59 - 158 ug/dL [facility] Iron binding capacity 247 200 - 400 ug/dL [facility] % Saturation 18.2 (L) 20.0 - 40.0 % [facility] Specimen Plasma specimen Performing Organization Address City/[facility]/Zipcode Phone Number [facility] [facility] [address] [place] [address] PATHOLOGY AND GENOMIC MEDICINE [address] * Thyroid stimulating hormone (04/30/2018 4:25 PM [employer]) TSH 2.54 0.27 - 4.20 uIU/mL [facility] Specimen Plasma specimen Performing Organization Address City/[facility] Phone Number [facility] [place] [address] PATHOLOGY AND GENOMIC MEDICINE [address] * T4, free (04/30/2018 4:25 PM [employer]) T4, free 1.1 0.9 - 1.7 ng/dL [facility] Specimen Plasma specimen Performing Organization Address City/[facility] Phone Number [facility] [place] [address] PATHOLOGY AND GENOMIC MEDICINE [address] * Ferritin level (04/30/2018 4:25 PM [employer]) Only the most recent of 2 results within the time period is included. Ferritin level 69 30 - 400 ng/mL [facility] Specimen Plasma specimen Performing Organization Address [facility] Phone Number [facility] [place] [address] PATHOLOGY AND GENOMIC MEDICINE [address] * XR Ankle 3+ Vw Left (02/11/2018 5:22 PM [employer]) Narrative Performed At EXAMINATION:XR ANKLE 3VW LEFT [...] soft tissue swelling along the lateral malleolus. [id number] Procedure Note Hm Interface, Radiology Results Incoming - 02/11/2018 5:39 PM [employer] EXAMINATION: XR ANKLE 3 VW LEFT CLINICAL [...] soft tissue swelling along the lateral malleolus. [id number] Performing Organization Address [facility]/Zipcode Phone Number [address] [address] * Uric acid level (02/11/2018 3:59 PM [employer]) Uric acid 6.3 3.4 - 7.0 mg/dL [facility] Specimen Plasma specimen Performing Organization Address [facility] Cent[facility]ode Phone Number [address] [address] PATHOLOGY AND GENOMIC MEDICINE [address] * Vitamin D 25 hydroxy level (12/17/2017 4:20 PM CDT) Vitamin D, 25-hydroxy 67.0 30.0 - 150.0 ng/mL [facility] DEPARTMENT OF Comment: PATHOLOGY AND This assay reports the sum of [employer] 25-hydroxy vitamin D3 and 25-hydroxy vitamin [...] alternative methods. Specimen Blood Performing Organization Address [facility] Centercode Phone Number [facility] [place] [address] PATHOLOGY AND GENOMIC MEDICINE * Occult blood, stool (09/03/2017 4:11 PM CDT) Occult blood, stool Negative for occult blood. [facility] DEPARTMENT OF Comment: PATHOLOGY AND Specimen Information GENOMIC MEDICINE Specimen Source: Stool Specimen Site: Nonpreserved Specimen Stool - Nonpreserved Performing Organization Address [facility]/Zipcode Phone Number [facility] [place] [address] PATHOLOGY AND GENOMIC MEDICINE * Reticulocyte count (09/03/2017 3:20 PM CDT) Retic %, auto 1.1 0.5 - 2.1 % [facility] DEPARTMENT OF PATHOLOGY AND GENOMIC MEDICINE Retic absolute, auto 0.0454 0.0220 - 0.1260 m/uL [facility] DEPARTMENT OF PATHOLOGY AND GENOMIC MEDICINE Specimen Blood Performing Organization Address City/[facility] [place] [address] PATHOLOGY AND GENOMIC MEDICINE * Serum electrophoresis (09/03/2017 3:20 PM CDT) Protein 6.7 6.3 - 8.3 g/dL [facility] DEPARTMENT OF Comment: PATHOLOGY AND GENOMIC MEDICINE 4.6-7.0 g/dL 1 week 4.4-7.6 g/dL 7 months-1year 5.1-7.3 g/dL 1-2 years5.6-7 .5 g/dL >3 years6.0-8 .0 g/dL 18-150 6.3-8.3 g/dL SPE albumin 4.35 4.00 - 5.30 g/dL [facility] DEPARTMENT OF PATHOLOGY AND GENOMIC MEDICINE SPE alpha 1 0.17 0.10 - 0.25 g/dL [facility] DEPARTMENT OF PATHOLOGY AND GENOMIC MEDICINE SPE alpha 2 0.77 0.58 - 0.84 g/dL [facility] DEPARTMENT OF PATHOLOGY AND GENOMIC MEDICINE SPE beta 0.80 0.50 - 1.10 g/dL [facility] DEPARTMENT OF PATHOLOGY AND GENOMIC MEDICINE SPE gamma 0.61 0.60 - 1.30 g/dL [facility] DEPARTMENT OF PATHOLOGY AND GENOMIC MEDICINE SPE extended See CommentComment: A normal [facility] DEPARTMENT OF interpretation serum protein study. PATHOLOGY AND GENOMIC MEDICINE SPE interpretation See CommentComment: [place] [facility] DEPARTMENT OF Juan, PhD; Marga Bello, PhD; Vicki DE AND MD Issac GENOMIC MEDICINE Specimen Serum Performing Organization Address City/[facility] [place] [address] PATHOLOGY AND GENOMIC MEDICINE * Immunoglobulin E (09/03/2017 3:20 PM CDT) IgE 31.9 0.0 - 100.0 IU/mL [facility] DEPARTMENT OF PATHOLOGY AND GENOMIC MEDICINE Specimen Plasma specimen Performing Organization Address City/[facility]/[place] [address] PATHOLOGY AND GENOMIC MEDICINE * Immunoglobulin A (09/03/2017 3:20 PM CDT) IgA 297 70 - 400 mg/dL [facility] DEPARTMENT OF PATHOLOGY AND GENOMIC MEDICINE Specimen Plasma specimen Performing Organization Address City/[facility] [place] [address] PATHOLOGY AND GENOMIC MEDICINE * Immunoglobulin M (09/03/2017 3:20 PM CDT) IgM 44 33 - 255 mg/dL [facility] DEPARTMENT OF PATHOLOGY AND GENOMIC MEDICINE Specimen Plasma specimen Performing Organization Address City/[facility] Centercode Phone Number [facility] [place] [address] PATHOLOGY AND GENOMIC MEDICINE * Immunoglobulin G (09/03/2017 3:20 PM CDT) IgG 846 700 - 1,600 mg/dL [facility] DEPARTMENT OF PATHOLOGY AND GENOMIC MEDICINE Specimen Plasma specimen Performing Organization Address City/[facility] [place] [address] PATHOLOGY AND GENOMIC MEDICINE * Folate level (09/03/2017 3:20 PM CDT) Folate >20.0 4.8 - 24.2 ng/mL [facility] DEPARTMENT OF PATHOLOGY AND GENOMIC MEDICINE Specimen Serum Performing Organization Address City/[facility] [place] [address] PATHOLOGY AND GENOMIC MEDICINE * Vitamin B12 level (09/03/2017 3:20 PM CDT) Vitamin B12 500 211 - 946 pg/mL [facility] DEPARTMENT OF Comment: PATHOLOGY AND Significant overlap exists GENOMIC MEDICINE between normal and deficiency states. However, most patients with deficiencies will have Serum B12 <200 pg/mL. Specimen Serum Performing Organization Address [facility] [place] [address] PATHOLOGY AND GENOMIC MEDICINE * Cv exercise treadmill stress (no imaging) (08/16/2017 11:33 AM CDT) Resting HR 56 [facility] MUSE Resting BP 151 [facility] MUSE Peak MET Achieved 1.0 [facility] MUSE Protocol Name REGLUZ MARINAO [facility] MUSE Time in Exercise Phase 00:01:00 [facility] MUSE Max Systolic BP 151 [facility] MUSE Max Diastolic BP 69 [facility] MUSE Max Heart Rate 74 [facility] M[facility] Max Predicted Heart Rate 143 [facility] MUSE Target HR Formula (220 - Age)*100% [facility] MUSE Test Indication EXTREME FATIGUE [facility] MUSE Arrhy During Ex [facility] MUSE ECG Interp Before EX [facility] MUSE ECG Interp During Ex [facility] MUSE Ex Summary Comment [facility] MUSE Overall HR Response to [facility] MUSE Exercise Overall BP Response To [facility] MUSE Exercise Reason for Termination [facility] MUSE Stress Test Impression -Waveform interpreted in [facility] MUSE report associated with image study. No interpretation is provided as part of this Stress ECG report.-Electronically Signed By Raimundo RHOADES, Tiffani Cyr ([id number]), subeditor Leobardo Senior ([id number]) on 08/16/2017 3:09:11 PM Performing Organization Address City/State/Zipcode Phone Number [facility] MUSE [address] [place] [address] * Cv myocardial perfusion (08/16/2017 11:33 AM CDT) Narrative Performed At [facility] Nuclear Cardiology and Cardiac CT [address] [place] [address] Myocardial Perfusion Imaging Report Stress ECG tracings are available in MUSE, EPIC and CV Web All ECG interpretations are included in this report Pat.Name:SUYAPA MONCADA STEWARTat.ID:[id number] .Date: 08/16/2017 Refer.MD:DUTCH GRAFF MD Exam Time: 11:56:00 AM Study Type:Myocardial Perfusion Imaging Height:64inBSA: 1.89 m2 DOBAge:1940,76YSex: MALE BP:151/69HR: 54 bpm Nuclear Tech:Bandar Grady [facility], [facility]/ SRIKANTH QuezadaMT, ARRT(N) Pat. Stat.:Outpatient Nuclear Event ID:[id number] Order ID:[id number] Reason for Study:Shortness of breath History / [...] CDT Nuclear Cardiology and Cardiac CT [address] [address] Myocardial Perfusion Imaging Report Stress ECG tracings are available in whistleBox, Medius and codebender All ECG interpretations are included in this report Pat.Name: CORAL SUYAPA Braden Pat.ID: [id number] .Date: 08/16/2017 Refer.MD: DUTCH GRAFF MD Exam Time: 11:56:00 AM Study Type:Myocardial Perfusion Imaging Height: 64in BSA: 1.89 m2 Age: 7 1940,76Y Sex: MALE BP: 151/69 HR: 54 bpm Nuclear Tech:Bandar Grady, [facility], [facility]/ Mabel Vásquez [facility], [facility](N) Pat. Stat.:Outpatient Nuclear Event ID:[id number] Order ID: [id number] Reason for Study:Shortness of breath History / [...] Jose Rafael Chisholm MD Performing Organization Address City/[facility]/Zipcode Phone Number [facility] [address] [place] [address] * POC glucose (07/30/2017 8:24 PM CDT) Only the most recent of 22 results within the time period is included. POC glucose 138 (H) 65 - 99 mg/dL [facility] DEPARTMENT OF Comment: PATHOLOGY AND [facility] Notified RN GENOMIC MEDICINE Meter ID: [id number] Bar Gauger And Lubricator Tender: Tiburcio Yun Performing Organization Address [facility]/Zipcode Phone Number [address] [address] PATHOLOGY AND GENOMIC MEDICINE * Vancomycin level, trough (07/29/2017 11:40 AM CDT) Vancomycin, trough 11.1 10.0 - 20.0 ug/mL [facility] DEPARTMENT OF Comment: PATHOLOGY AND Therapeutic Ranges: GENOMIC MEDICINE Peak 30.0 - 40.0 ug/mL Nrszbp36.0 - 20.0 ug/mL Specimen Serum Performing Organization Address [facility] [place] [address] PATHOLOGY AND GENOMIC MEDICINE * Estimated GFR (07/29/2017 7:09 AM CDT) Only the most recent of 7 results within the time period is included. GFR Non Af Amer 82 mL/min/1.73 m2 [facility] DEPARTMENT OF PATHOLOGY AND GENOMIC MEDICINE GFR Af Amer >90 mL/min/1.73 m2 [facility] DEPARTMENT OF Comment: PATHOLOGY AND Chronic kidney disease: <60 GENOMIC MEDICINE mL/min/1.73m2 Kidney failure: <15 mL/min/1.73m2 The estimated GFR is calculated from the IDPA-traceable Modification of Diet in Renal Disease Equation. The accuracy of the calculation is poor when the creatinine is normal. Calculated values >90 mL/min/1.73m2 are not reported. This equation has not been validated in children (<18 years), women, the elderly (>70 years), or ethnic groups other than Caucasians and Americans. Specimen Plasma specimen Performing Organization Address City/[facility] Centercode Phone Number [facility] DEPARTMENT OF [address] [place] [address] PATHOLOGY AND GENOMIC MEDICINE * Fungus smear (07/26/2017 11:42 AM CDT) Fungus smear No fungi observed. [facility] DEPARTMENT OF Comment: PATHOLOGY AND Specimen Information GENOMIC MEDICINE Specimen Source: Abscess Specimen Site: Mandible Submental abscess Specimen Abscess Performing Organization Address [facility] Phone Number [facility] [place] [address] PATHOLOGY AND GENOMIC MEDICINE * AFB culture (07/26/2017 11:42 AM CDT) AFB culture isolate No growth after 6 weeks of [facility] DEPARTMENT OF incubation. PATHOLOGY AND Comment: GENOMIC MEDICINE Specimen Information Specimen Source: Abscess Specimen Site: Mandible Submental abscess Specimen Abscess Performing Organization Address [facility] Phone Number [facility] [place] [address] PATHOLOGY AND GENOMIC MEDICINE * Aerobic culture (07/26/2017 11:42 AM CDT) Aerobic culture isolate Diphtheroids [facility] DEPARTMENT OF Few PATHOLOGY AND (A) GENOMIC MEDICINE Comment: Specimen Information Specimen Source: Abscess Specimen Site: Mandible Submental abscess Aerobic culture isolate Staphylococcus, coagulase [facility] DEPARTMENT OF negative PATHOLOGY AND Few GENOMIC MEDICINE (A) Aerobic culture isolate Alpha Strep, not pneumococcus [facility] DEPARTMENT OF Few PATHOLOGY AND Few GENOMIC MEDICINE (A) Specimen Abscess - Mandible Performing Organization Address [facility]ode Phone Number [facility] [place] [address] PATHOLOGY AND GENOMIC MEDICINE * Gram stain (07/26/2017 11:42 AM CDT) Only the most recent of 2 results within the time period is included. Gram stain isolate Few WBC's [facility] DEPARTMENT OF No organisms seen PATHOLOGY AND Comment: GENOMIC MEDICINE Specimen Information Specimen Source: Abscess Specimen Site: Mandible Submental abscess Specimen Abscess Performing Organization Address City/[facility]ercode Phone Number [facility] DEPARTMENT OF [address] [place] [address] PATHOLOGY AND GENOMIC MEDICINE * AFB stain (07/26/2017 11:42 AM CDT) AFB stain No acid fast bacilli (AFB) [facility] DEPARTMENT OF seen. PATHOLOGY AND Comment: GENOMIC MEDICINE Specimen Information Specimen Source: Abscess Specimen Site: Mandible Submental abscess Specimen Abscess Performing Organization Address City/[facility]ode Phone Number [facility] DEPARTMENT OF [address] [place] [address] PATHOLOGY AND GENOMIC MEDICINE * Fungus culture (07/26/2017 11:42 AM CDT) Fungus culture isolate No growth after 4 weeks of [facility] DEPARTMENT OF incubation. PATHOLOGY AND Comment: GENOMIC MEDICINE Specimen Information Specimen Source: Abscess Specimen Site: Mandible Submental abscess Specimen Abscess - Mandible Performing Organization Address [facility]ercode Phone Number [facility] DEPARTMENT OF [address] [place] [address] PATHOLOGY AND GENOMIC MEDICINE * Anaerobic culture (07/26/2017 11:42 AM CDT) Anaerobic culture isolate Prevotella species (A) [facility] DEPARTMENT OF Comment: PATHOLOGY AND Specimen Information GENOMIC MEDICINE Specimen Source: Abscess Specimen Site: Mandible Submental abscess Anaerobic culture isolate Eubacterium brachy (A) [facility] DEPARTMENT OF PATHOLOGY AND GENOMIC MEDICINE Anaerobic culture isolate Atopobium rimae (A) [facility] DEPARTMENT OF PATHOLOGY AND GENOMIC MEDICINE Specimen Abscess - Mandible Performing Organization Address [facility] Centercode Phone Number [facility] DEPARTMENT OF [address] [place] [address] PATHOLOGY AND GENOMIC MEDICINE * Lactic acid level (07/26/2017 5:00 AM CDT) Only the most recent of 2 results within the time period is included. Lactic acid 0.8 0.5 - 2.2 mmol/L [facility] DEPARTMENT OF PATHOLOGY AND GENOMIC MEDICINE Specimen Plasma specimen Performing Organization Address City/[facility]ode Phone Number [facility] [place] [address] PATHOLOGY AND GENOMIC MEDICINE * Ionized calcium (07/26/2017 5:00 AM CDT) pH 7.53 [facility] DEPARTMENT OF PATHOLOGY AND GENOMIC MEDICINE Ionized calcium 1.03 (L) 1.11 - 1.32 mmol/L [facility] DEPARTMENT OF PATHOLOGY AND GENOMIC MEDICINE Specimen Plasma specimen Performing Organization Address [facility] [place] [address] PATHOLOGY AND GENOMIC MEDICINE * Respiratory pathogen panel (07/26/2017 4:50 AM CDT) Respiratory pathogen Negative for all pathogens [facility] DEPARTMENT OF panel tested: PATHOLOGY AND Negative for Adenovirus [facility] Negative for Coronavirus HKU1 [...] Specimen Nares - Right Performing Organization Address [facility] Phone Number [place] [phone] PATHOLOGY AND [employer] MEDICINE * Venous blood gas (07/26/2017 4:40 AM CDT) pH, venous 7.36 7.32 - 7.42 [facility] DEPARTMENT OF PATHOLOGY AND GENOMIC MEDICINE pCO2, venous 41 (L) 45 - 51 mmHg [facility] DEPARTMENT OF PATHOLOGY AND GENOMIC MEDICINE pO2, venous 92 (H) 25 - 40 mmHg [facility] DEPARTMENT OF PATHOLOGY AND GENOMIC MEDICINE Base excess, venous -2 -2 - 2 meq/L [facility] DEPARTMENT OF PATHOLOGY AND GENOMIC MEDICINE O2 saturation, venous 98 (H) 40 - 70 % [facility] DEPARTMENT OF PATHOLOGY AND GENOMIC MEDICINE Bicarbonate, venous 22.4 21.0 - 28.0 mmol/L [facility] DEPARTMENT OF PATHOLOGY AND GENOMIC MEDICINE Specimen Blood Performing Organization Address [facility] Phone Number [facility] DEPARTMENT OF [address] [place] [address] PATHOLOGY AND GENOMIC MEDICINE * CT Soft [...] at 07/26/2017 12:17 AM who verbalized understanding. [facility]-[id number] Procedure Note Interface, Radiology Results Incoming - [...] at 07/26/2017 12:17 AM who verbalized understanding. [facility]-[id number] Performing Organization Address City/[facility] Phone Number [facility] [address] [place] [address] * ECG ED Preliminary Interpretation - NOT AN ORDER (07/25/2017 9:30 PM CDT) Narrative Performed At Ashley Cuba MD 07/30/2017 11:33 AM ECG ED Preliminary Interpretation - Not an Order Performed by: ASHLEY CUBA Authorized by: ASHLEY CUBA ECG reviewed by ED Physician in the absence of a orthopedic designer: yes Interpretation: Interpretation: abnormal Rate: ECG rate:86 ECG rate assessment: normal Rhythm: Rhythm: sinus rhythm QRS: QRS axis:Left QRS intervals:Normal ST segments: ST segments:Normal Comments: LAE * Blood culture, aerobic & anaerobic (07/25/2017 8:05 PM CDT) Only the most recent of 2 results within the time period is included. Blood culture isolate No growth after 5 days of [facility] DEPARTMENT OF incubation. PATHOLOGY AND Comment: GENOMIC MEDICINE Specimen Information Specimen Source: Blood Specimen Site: Antecubital, right Specimen Blood - Antecubital, right Performing Organization Address City/[facility] Phone Number [facility] DEPARTMENT OF [address] [place] [address] PATHOLOGY AND GENOMIC MEDICINE * Lactic acid level, SEPSIS - Now and repeat 2x every 3 hours (07/25/2017 7:55 PM CDT) Lactic acid 1.7 0.5 - 2.2 mmol/L [facility] DEPARTMENT OF PATHOLOGY AND GENOMIC MEDICINE Specimen Plasma specimen Performing Organization Address [facility] Centercode Phone Number [facility] DEPARTMENT OF [address] [place] [phone] PATHOLOGY AND GENOMIC MEDICINE after 06/30/2017 Insurance Payer Benefit Subscriber ID Type Phone Address Plan / Group MEDICARE MEDICARE xxxxxxxxxxx Medicare [place] PART A AND B AETNA AETNA xxxxxxxxxx HMO HMO,POS,EP O, MC/EC Advance Directives Patient has advance care planning documents on file. For more information, augustina barrios contact: Campbell Mcgee [address] [place] [address]
--- NOTE | 2018-07-02 00:10 | NUR ---
DID MEDCIAL SCREENING EXAM ON PATIENT AND STATES NO MEDICAL EMERGENCY AT THIS TIME. PATIENT'S DAUGHTER ARGUEING AND RAISING VOICE AND DR. ESCOBAR DEMANDING THAT STITCHES REMOVED. STATES THEY DO NOT WANT TO GO TO PCP TOMORROW SINCE IT WILL BE LONG WAIT. PATIENT AGAIN EDUCATED ABOUT EMERGENY ROOM MEDICAL SCREENING EXAM AND DAUGHTER STATES SHE WANTS THEM OUT. PATIENT DAUGHTER VERY RUDE AND ARGUMENTATIVE WITH ALL STAFF. PATIENT AND DAUGHTER AGAIN THIS VISIT IS NON EMERGENT AND TOLD THEY ARE MEDICALLY SCREENED AND COULD GO HOME. DAUGHTER AND PATIENT MUMBLING WORDS ON THE WAY OUT AND DAUGHTER RUDE TO [facility] REGISTRATION WHEN LEAVING.
== END 2018-07-02 00:31 | disposition left against medical advice (07) ==
LOC: FSED 23:41
DX: Z48.01 Encounter for change or removal of surgical wound dressing (principal)

== ENCOUNTER 2020-04-14 00:31 | Emergency (ER) | payer MEDICARE, OTHER ==
[~2020-04-14] VITALS: Ht 167.6 cm; Wt 83.9 kg
[2020-04-14] MEDS ORDERED: TRAMADOL HCL 50 MG TAB PO ONE (01:00)
[2020-04-14] MEDS ORDERED: TRAMADOL HCL 50 MG TAB ONE (01:36)
[2020-04-14 02:50] VITALS: BP 158/66
== END 2020-04-14 02:50 | disposition home or self-care (01) ==
LOC: FSED 00:45
DX: S40.012A Contusion of left shoulder, initial encounter (principal); W00.0XXA Fall on same level due to ice and snow, initial encounter; Y93.01 Activity, walking, marching and hiking; I10 Essential (primary) hypertension
CPT/HCPCS: 99283

== ENCOUNTER → 2022-08-14 | Outpatient (CLI) | payer MEDICARE, OTHER | LOC: NM 09:02 | PROVIDERS: ATTEND Internal Medicine Gastroenterology | DX: R63.0 Anorexia (principal); R68.81 Early satiety | CPT/HCPCS: 78264; A9541 ==